=== PATIENT | male | born 1970 ===

== ENCOUNTER → 2021-03-16 10:05 | Outpatient (BNVA) | payer OTHER, SELFPAY | PROVIDERS: PCP Physician Assistant; Visit Provider Surgery | DX: R22.9 Localized swelling, mass and lump, unspecified (principal) | CPT/HCPCS: 99202 ==

== ENCOUNTER 2021-04-13 12:42 | Outpatient (REF) | payer OTHER, SELFPAY ==
[2021-04-13 12:49] VITALS: BP 112/77; PULSE 69; RESP 16; TEMP 36.4; O2SAT 97; BMI 29.2
--- NOTE | 2021-04-13 13:23 | P.OP_ITS ---
Operative Note Operative Note Date of Service: 04/13/21 Narrative: Preop diagnosis: Epidermal cyst, sternum Postop diagnosis: Epidermal inclusion cyst, sternum Procedure: Excision of epidermal inclusion cyst, sternum Surgeon: Anupam Almanza MD Screed Person: QUIQUE Erickson Student The patient is a 50-year-old male with note of a well-defined cystic mass on the sternum, about 2.5 cm in diameter. This was consistent with an epidermal inclusion cyst. He understood the technique of excision under local anesthesia. Was aware of the risks, benefits and alternatives He was brought to the minor procedure room and placed supine on the table. The area of the cyst was prepped and draped in the usual sterile fashion. I infiltrated the planned line of incision with lidocaine 1%. I made an incision on the skin using blade 15 and this was carried down with sharp dissection until I visualized a cyst capsule. I sharply dissected the cyst capsule off of the rest of subcutaneous layer circumferentially until I was able to deliver this cyst including its contents. This was sent as specimen. I irrigated the area of excision. I closed the incision with full-thickness nylon 3-0 interrupted sutures. Dressings were applied. The patient tolerated procedure well. There were no complications noted. Estimated blood loss was about 1 cc The patient was given discharge instructions and will be seen in the office for follow-up for removal of sutures.
[2021-04-13 13:25] VITALS: BP 112/73; PULSE 60; RESP 16; O2SAT 98
== END 2021-04-13 12:43 | disposition home or self-care (01) ==
LOC: HO.MS 12:42
PROVIDERS: Visit Provider Surgery
PROC: (CPT 11403; principal; 2021-04-13 13:00)
DX: L72.0 Epidermal cyst (principal)
CPT/HCPCS: 11403; 88304

== ENCOUNTER → 2021-04-24 11:39 | Outpatient (BNVA) | payer OTHER, SELFPAY | PROVIDERS: Visit Provider Surgery | DX: Z48.817 Encounter for surgical aftercare following surgery on the skin and subcutaneous tissue (principal); Z87.2 Personal history of diseases of the skin and subcutaneous tissue | CPT/HCPCS: 99212 ==

== ENCOUNTER 2021-06-12 10:52 | Outpatient (REF) | payer OTHER, SELFPAY ==
--- NOTE | ~2021-06-12 | XR_ITS ---
EXAMINATION: XR LUMBOSACRAL SPINE CLINICAL INFORMATION: Straining of muscle, fascia and tendon of lower back COMPARISON: None TECHNIQUE: Three views of the lumbosacral spine. FINDINGS: The vertebral bodies and posterior elements are normal. The disc spaces are preserved and the vertebral alignment is normal. Small multilevel endplate osteophytes. The sacroiliac joints are symmetric. The visualized sacrum is intact. Normal bowel gas pattern. The paraspinal soft tissues are normal. XR/XR lumbar spine 2-3V IMPRESSION: Mild degenerative changes.
== END 2021-06-12 10:53 | disposition home or self-care (01) ==
LOC: HO.XRAY 10:52
PROVIDERS: PCP Physician Assistant; Visit Provider Physician Assistant
DX: S39.012A Strain of muscle, fascia and tendon of lower back, initial encounter (principal); X58.XXXA Exposure to other specified factors, initial encounter; Y93.9 Activity, unspecified; Y92.9 Unspecified place or not applicable; Y99.9 Unspecified external cause status
CPT/HCPCS: 72100

== ENCOUNTER → 2021-09-18 09:09 | Outpatient (BNVA) | payer OTHER, SELFPAY | PROVIDERS: PCP Physician Assistant; Referring Provider Physician Assistant; Visit Provider Nurse Practitioner Family | DX: Z13.89 Encounter for screening for other disorder (principal) ==

== ENCOUNTER 2021-10-24 10:10 | Day surgery (SDC) | payer OTHER, SELFPAY ==
[2021-10-16 14:09] VITALS: BMI 29.9
--- NOTE | 2021-10-20 09:12 | HO.ANESPROP2 ---
Documented by User: Angie Caldwell NP 10/20/21 09:13 HPI - Anesthesia Eval Consult details Narrative: 50yo M for Colonoscopy Optimized per PCP [facility] Active Problems Active Problems: All Active Problems (Updated 10/17/21 @ 07:24 by Ijeoma Stephens RN) Lipoma (Acute) Annual physical exam (Acute) Afib (Acute) Screening for diabetes mellitus (DM) (Acute) Screening for hypercholesterolemia (Acute) Screening for hypothyroidism (Acute) Lumbar spine strain (Acute) Colon cancer screening (Acute) Subcutaneous mass (Acute) Arrhythmia (Acute) Past Medical History Medical History Arrhythmia History of cardioversion Sleep apnea Subcutaneous mass Family History Family History Father CVD (cardiovascular disease) Surgical History Surgical History Status post excision of lipoma Social History Social History Housing: House Alcohol intake: current Alcohol intake frequency: holidays/special occasions only Alcohol type: beer Patient Tobacco Use Status: Never used Tobacco e-Cigarette/Vaping Use: Never Used Second Hand Smoke Exposure: No Advance Directives: No Advance Directives Information Provided: Yes Advance Directives on File: No service: No Current occupational status: employed 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 [employer] Meds Allergies Allergy/AdvReac Type Severity Reaction Status Date / Time No Known Allergies Allergy Verified 09/18/21 09:25 Home Medications Medication Instructions Recorded Confirmed Last Taken Type aspirin 81 mg tablet,delayed 81 mg PO DAILY 01/03/21 06/12/21 Unknown History release (Adult Aspirin Regimen) metoprolol tartrate 100 mg tablet 100 mg PO BID 02/07/21 06/12/21 Unknown History Exam Exam Date and Time: October 20, [id number] Height,Weight and Vital Signs: Height 5 ft 7 in Weight 86.636 kg Assessment and Plan Assessment Anesthesia Assessment: Chart Reviewed Documented by User: Eryn Michelle MD 10/24/21 10:40 PMF Past Medical History Medical History Arrhythmia History of cardioversion Sleep apnea Subcutaneous mass Functional capacity: independent ambulation Family History Family History Father CVD (cardiovascular disease) Family history of problems with anesthesia: No Surgical History Surgical History Status post excision of lipoma History of Problems with Anesthesia: No Social History Social History Housing: House Alcohol intake: current Alcohol intake frequency: holidays/special occasions only Alcohol type: beer Patient Tobacco Use Status: Never used Tobacco e-Cigarette/Vaping Use: Never Used Second Hand Smoke Exposure: No Advance Directives: No Advance Directives Information Provided: Yes Advance Directives on File: No service: No Current occupational status: employed 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 Assessment and Plan Final Anesthetic Review Family History of Problems with Anesthesia: No History of Problems with Anesthesia: No ASA Class: III Final Preanesthetic Review: No Changes in Pt Med Stat, Meds/Allgs Chart Reviewed, Consent Obtained/Reviewed and Anes Risks/Benef Reviewed Patient Risk: Intermediate Procedure Risk: Low Anesthetic Plan Anesthetic Plan: MAC: Disposition: Standard PACU
--- NOTE | 2021-10-24 10:15 | MHC.SHP ---
Pre-Procedural Eval Section A Date of Service: 10/24/21 Section B Chief Complaint: screening Relevant Family History (Specify if Yes): No Relevant Social History: Other (specify) (THC use) Present Medications: see Short Stay Collaborative assessment Medical History: Significant History (Arrhythmia History of cardioversion Sleep apnea Subcutaneous mass) History of Previous Operations: Relevant previous surgery/procedure and date(s) (lipoma removal) Allergies: Allergies Allergy/AdvReac Type Severity Reaction Status Date / Time No Known Allergies Allergy Verified 09/18/21 09:25 Review of Systems Sugical H&P ROS: Negative: Constitution, Cardiovascular, Respiratory, Neurological, Psychiatric, Hem-Onc, Allergic/Immunologic, Gastrointestinal, Genitourinary, Musculoskeletal, Integumentary, Endocrine and Eyes/Ears/Nose/Throat Exam Surgical H&P Exam: Normal: HEENT, Normal: Heart, Normal: Lungs, Normal: Extremities, Normal: Abdomen, Normal: Skin and Normal: Neurological Plan Diagnosis/Plan: Unchanged I have reviewed the history and physical and performed a pertinent physical examination on my patient. No changes have occurred unless specified.
[2021-10-24 10:34] VITALS: BP 123/88; PULSE 71; RESP 16; TEMP 36.9; O2SAT 97
[2021-10-24] MEDS: Lactated Ringers 1,000 ML 100 ML IVCONT (10:43)
--- NOTE | 2021-10-24 11:11 | P.OP_ITS ---
Operative Note Operative Note Date of Service: 10/24/21 Narrative: Operative Information Procedure Description: Colonoscopy Indication: screening colonoscopy Anesthesia: MAC COLONOSCOPY Instrument: Olympus variable stiffness pediatric scope 190L Colonoscopy Monitoring: Vital signs and clinical assessment, continuous EKG monitoring, Pulse oximetry, Carbon Dioxide monitoring and blood pressure monitoring were done throughout the procedure. Colon withdrawal time was 10 minutes. Procedure: The patient was placed in the left lateral decubitis position and pre-procedure medications were administered. After a digital rectal examination of the ano-rectum, the video colonoscope was inserted into the rectum and advanced through the colon to the cecum/TI. The colonoscope was slowly withdrawn in a retrograde panoramic fashion and the colon mucosa was carefully examined including a retroflexed view of the rectum. Findings and interventions are described below. Procedure Difficulty: easy Findings: Terminal Ileum-normal Cecum:normal Ascending Colon: normal Transverse Colon -normal Descending Colon:normal Sigmoid Colon: normal Rectum: Retroflexion with small internal hemorrhoids, grade I Anorectum - normal Colon preparation: [place] Bowel Preparation Scale Right colon; 1-2 Transverse colon: 2 Left colon; 2 (0 = Unprepared colon segment with mucosa not seen due to solid stool that cannot be cleared. 1 = Portion of mucosa of the colon segment seen, but other areas of the colon segment not well seen due to staining, residual stool and/or opaque liquid. 2 = Minor amount of residual staining, small fragments of stool and/or opaque li quid, but mucosa of colon segment seen well. 3 = Entire mucosa of colon segment seen well with no residual staining, small fragments of stool or opaque liquid) Impression and Post Procedure Diagnosis: internal hemorrhoids Plan: High fiber diet leaflet Avoid straining at stool, epsom salts and sitz bath, anusol supps or cream Repeat Colonoscopy in 5 years due to right sided prep or earlier if clinically indicated Above findings were reviewed with the patient and relevant handouts were provided if indicated.
--- NOTE | 2021-10-24 11:11 | PM.OP ---
Brief Operative Note Date of Service: 10/24/21 Pre-op diagnosis: screening colonoscopy Post-op diagnosis: same Procedure: see op note Surgeon: Giullermina Maya MD Anesthesia: MAC Was an Surveyor Oil Well Directional used for this Procedure?: No Estimated blood loss (mL): 0 Condition: stable Disposition: PACU
[2021-10-24 11:52] VITALS: BP 91/51; PULSE 74; RESP 16; TEMP 36.8; O2SAT 94
--- NOTE | 2021-10-24 11:57 | HO.POSTANES ---
Post Anesthesia Evaluation Post Anesthesia Evaluation Vital Signs: Vital Signs Temp Pulse Resp BP Pulse Ox 10/24/21 11:52 98.2 F 74 16 91/51 L 94 10/24/21 10:34 98.5 F 71 16 123/88 97 Anesthesia: Monitored Mental Status: Awake Pain Control: Satisfactory Nausea/Vomiting: None Hydration: Adequate Anesthesia-Related Issues: No Anes. Related Issues
[2021-10-24 12:07] VITALS: BP 93/64; PULSE 77; RESP 16; O2SAT 95
[2021-10-24 12:21] VITALS: BP 114/80; PULSE 54; RESP 16; O2SAT 97
[2021-10-24 12:36] VITALS: BP 118/71; PULSE 64; RESP 16; TEMP 36.8; O2SAT 97
== END 2021-10-24 13:49 | disposition home or self-care (01) ==
PROVIDERS: PCP Physician Assistant; Visit Provider Internal Medicine Gastroenterology
PROC: 0DJD8ZZ Inspection of Lower Intestinal Tract, Via Natural or Artificial Opening Endoscopic (ICD-10-PCS; CPT 45378; principal; 2021-10-24 11:20)
DX: Z12.11 Encounter for screening for malignant neoplasm of colon (principal); K64.0 First degree hemorrhoids; I48.91 Unspecified atrial fibrillation; Z79.899 Other long term (current) drug therapy; Z79.82 Long term (current) use of aspirin; Z98.890 Other specified postprocedural states
CPT/HCPCS: 45378

== ENCOUNTER 2023-04-15 09:56 | Outpatient (AMB) | payer OTHER, SELFPAY ==
--- NOTE | 2023-04-15 10:13 | MHC.PC.OV ---
Vital Signs 04/15/23 10:15 Weight 228 lb BP 148/100 H Blood Pressure Location Lt brachial Position Sitting Respiration 17 Pulse 88 Pulse Source Pulse Oximeter Pulse Oximetry (%) 98 Oxygen Delivery Method Room Air Intake Visit Reasons: Lump on chest/ Stye right eye Intake Note: Pt is here for lipomatous lesion midsternum requesting removal and Stye on right eye. Pbx Wire Chief Required: No Accompanied by: Self / Same As Patient Allergies No Known Allergies Allergy (Verified 04/15/23 10:35) Medication List - Last Reconciled 04/15/23 by Nish Amaral PA-C aspirin (Adult Aspirin Regimen) 81 mg PO DAILY baclofen 10 mg PO BID 14 days ibuprofen 800 mg PO Q8H 10 days metoprolol tartrate 100 mg PO BID 90 days Tobacco use date assessed: 04/15/23 Dental Screening Dental Screen Date: 04/15/23 Did you have a dental visit in the last 12 months?: No Did you have a dental problem in the last 6 months where you did not have access to dental care?: No Was dental information given to patient?: Patient has dentist HPI Lump on chest/ Stye right eye HPI Details Patient is a 52-year-old male here today for problem visit. Patient has a past medical history significant for cardiac arrhythmia. Reports he has had a lump on his chest he would like removed. Of note he did have an epidermal inclusion cyst removed from his chest in [address] valera. He reports the mass has become more painful even to light touch. He would like to have surgical removal again. AFib: Continues with daily use of aspirin and metoprolol. He reports he for God to take his metoprolol over the last 2 days which is likely the reason his blood pressure is elevated. Needs refill on metoprolol. 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 1. Little interest or pleasure in doing things: not at all 2. Feeling down, depressed, or hopeless: not at all 3. Trouble falling or staying asleep, or sleeping too much: not at all 4. Feeling tired or having little energy: not at all 5. Poor appetite or overeating: not at all 6. Feeling bad about yourself - or that you are a failure or have let yourself or your family down: not at all 7. Trouble concentrating on things, such as reading the newspaper or watching television: not at all 8. Moving or speaking so slowly that other people could have noticed. Or the opposite - being so fidgety or restless that you have been moving around a lot more than usual: not at all 9. Thoughts that you would be better off or of hurting yourself in some way: not at all Total score: 0 Depression Screening Interpretation: Negative Depression Screening Done: Yes 76101 - PHQ-9 Billing: Yes Source: Developed by Drs. Sidney Yun, Aimee Lay, Scar Antonio and colleagues, with an educational gaudencio from [employer]. Thrive Questionnaire Date Thrive assessed: 04/15/23 I am a: Patient What is your living situation today?: I have a steady place to live Within the past 12 months, did the food you bought not last and you didn't have the money to get more?: Never true Within the past 12 months, did you worry whether your food would run out before you got money to buy more?: Never true Do you have trouble paying for medicines?: No Do you have trouble getting transportation to medical appointments?: No Do you have trouble paying your heating and electricity bill?: No Do you have trouble taking care of your child, family member or friend?: No Do you have trouble with day-to-day activities such as bathing, preparing meals, shopping, managing finances, etc.?: No Are you currently unemployed and looking for a job?: No Are you interested in more education?: No Please select the resources that you would like help with: None Currently or been in a relationship where the following occur: no concerns reported AUDIT C Alcohol Use Questionnaire (AUDIT-C) 1. How often do you have a drink containing alcohol?: 2-4 times a month 2. How many drinks containing alcohol do you have on a typical day when you are drinking?: 3 or 4 3. How often do you have six or more drinks on one occasion?: Less than monthly Total Score: 4 LU-7 AMB Questionnaire LU-7 Date LU - 7 assessed: 04/15/23 Feeling nervous, anxious, or on edge: 0 = Not at all Not being able to stop or control worryin = Not at all Worrying too much about different things: 0 = Not at all Trouble relaxin = Not at all Being so restless that it is hard to sit still: 0 = Not at all Becoming easily annoyed or irritable: 0 = Not at all Feeling afraid as if something awful might happen: 0 = Not at all Total LU-7 score (0-4 normal; 5-9 mild; 10-14 moderate; 15-21 severe): 0 Source: Developed by Drs. Sidney Yun, Aimee Lay, Scar Antonio and colleagues, with an educational gaudencio from [employer]. LU-7 Assessment Billing LU-7 Assessment Tool: LU-7 Assessment 20135 Review of Systems Const Denies headache(s) Eyes Denies loss of vision ENT Denies vertigo, Denies dizziness, Denies headache(s) and Denies sore throat Card Denies chest pain, Denies leg edema and Denies lightheadedness Resp Denies cough, Denies hemoptysis and Denies wheezing GI Denies abdominal pain, Denies melena, Denies constipation, Denies diarrhea and Denies vomiting Denies dysuria, Denies urinary frequency and Denies urinary urgency Musc Denies arthralgias, Denies joint swelling, Denies numbness and Denies tingling Neuro Denies Abnormal speech present, Denies behavioral changes, Denies vertigo, Denies dizziness, Denies headache(s), Denies loss of vision, Denies memory loss, Denies numbness and Denies tingling Psych Denies anxiety, Denies behavioral changes, Denies depression, Denies memory loss and Denies panic attacks Bhavin/Lymph Denies easy bleeding and Denies easy bruising Aller/Immun Denies wheezing Physical exam (Primary Care) Vital Signs: Last Vital Signs Pulse 88 04/15/23 10:15 Resp 17 04/15/23 10:15 BP 148/100 H 04/15/23 10:15 Pulse Ox 98 04/15/23 10:15 Oxygen Delivery Method Room Air 04/15/23 10:15 Tobacco/Smoking Status: Tobacco use Status Tobacco use date assessed 04/15/23 04/15/23 10:23 Patient Tobacco Use Status Never used Tobacco 04/15/23 10:22 e-Cigarette/Vaping Use Never Used 04/15/23 10:22 PHQ-9: PHQ-9 Score PHQ-9: Total score 0 04/15/23 10:29 Depression Screening Interpretation: Negative Thrive Assessment: Date of Thrive Assessment Date Thrive assessed 04/15/23 04/15/23 10:23 Currently or been in a relationship where the following occur: no concerns reported Const General: healthy appearing, no acute distress, alert and awake Nutritional Appearance: well nourished Orientation/consciousness: oriented to person, oriented to place and oriented to time HENMT Ears: TM's normal bilaterally General nose exam: Normal nasal mucous membranes and turbinates present Eyes Conjunctivae: conjunctivae normal Sclerae: sclerae normal Pupils: Equal, round and reactive pupils present Neck Neck: Yes no lymphadenopathy and Yes no JVD Thyroid: Thyroid normal Carotids: no bruits Chest Chest/axillae images: 1. LARGE ERYTHEMATOUS SUBCUTANEOUS MASS. Resp Effort & Inspection: normal respiratory effort and not tachypneic Auscultation: no crackles, no rales, no rhonchi and no wheezes Cardio Rate: regular rate Rhythm: regular rhythm Heart sounds: no murmurs and normal S1 and S2 GI Palpation (GI): Soft to palpation, nontender, no hepatomegaly and no splenomegaly Auscultation: normal bowel sounds Skin General skin exam: no rashes or lesions noted and dry skin Neuro General: oriented to person, oriented to place and oriented to time Cranial nerves: Yes Equal, round and reactive pupils present Speech: No Abnormal speech present Gait exam (Neuro): Normal gait present Motor exam (neuro): no tremor noted Extrem Right upper extremity: full ROM Left upper extremity: full ROM Right lower extremity: full ROM; no edema Left lower extremity: full ROM; no edema Psych Mental Status: mental status grossly normal Speech and movement: Normal speech and movement present Affect: normal affect Attitude: cooperative Thought process: Normal thought process present Assessment and Plan Assessment & Plan (1) Subcutaneous cyst: Code(s): L72.9 - Follicular cyst of the skin and subcutaneous tissue, unspecified Plan: Has a large recurrent subcutaneous inclusion cyst noted over his chest. Has had surgically removed in 2020. Has recurred and in a lot of pain. Will supply patient with antibiotics and pain medication. Will refer back to general surgeon for surgical will. Orders: Orders Comprehensive Mio. Panel Fast Today I48.91 - Unspecified atrial fibrillation Complete Blood Count no Diff Today I48.91 - Unspecified atrial fibrillation Prostate Specific Antigen Scr Today I48.91 - Unspecified atrial fibrillation, Z12.5 - Encounter for screening for malignant neoplasm of prostate Referrals General Surgery Referral L72.9 - Follicular cyst of the skin and subcutaneous tissue, unspecified Medications: New amoxicillin-pot clavulanate 875-125 mg 1 tab PO BID 10 days 20 tabs 0RF L72.9 - Follicular cyst of the skin and subcutaneous tissue, unspecified acetaminophen-codeine 300-30 mg 1 tab PO BEDTIME 5 days 5 tabs 0RF pain L72.9 - Follicular cyst of the skin and subcutaneous tissue, unspecified Refilled metoprolol tartrate 100 mg PO BID 90 days 180 tabs 1RF I49.9 - Cardiac arrhythmia, unspecified Coding Level of Care Code Est Pt Level 4 (10281) Diagnoses Subcutaneous cyst L72.9 Additional Codes LU-7 Assessment Billing - LU-7 Assessment Tool: LU-7 Assessment 28685 ([id number])
[2023-04-15 10:15] VITALS: BP 148/100; PULSE 88; RESP 17; O2SAT 98
== END 2023-04-15 10:58 | disposition home or self-care (01) ==
PROVIDERS: PCP Physician Assistant; Visit Provider Physician Assistant
DX: L72.9 Follicular cyst of the skin and subcutaneous tissue, unspecified (principal); Z82.49 Family history of ischemic heart disease and other diseases of the circulatory system
CPT/HCPCS: 99214

== ENCOUNTER 2023-04-18 08:33 | Outpatient (AMB) | payer OTHER, SELFPAY ==
--- NOTE | 2023-04-18 08:34 | A.OFFVIS_ITS ---
Intake Vital Signs 04/18/23 08:42 Weight 227 lb Intake Visit Reasons: large subcutaneous cyst chest Intake Note: This patient presents for an assessment for large subcutaneous cyst on the chest. Patient c/o; reports cyst popped, reports was very painful, reports draining when popped, reports was not able to sleep x3 days because of pain and discomfort. Cylinder Inspector And Tester Required: No Accompanied by: Self / Same As Patient Allergies No Known Allergies Allergy (Verified 04/18/23 08:42) Medication List - Last Reconciled 04/18/23 by Anupam Almanza MD acetaminophen-codeine 300-30 mg 1 tab PO BEDTIME 5 days amoxicillin-pot clavulanate 875-125 mg 1 tab PO BID 10 days aspirin (Adult Aspirin Regimen) 81 mg PO DAILY baclofen 10 mg PO BID 14 days hydroxyzine HCl 50 mg PO TID ibuprofen 800 mg PO Q8H 10 days metoprolol tartrate 100 mg PO BID 90 days mirtazapine 30 mg PO BEDTIME olanzapine 10 mg PO BEDTIME HPI large subcutaneous cyst chest HPI Details He is here for another cyst on his chest wall. He had noticed about 10 days ago. He says that this then drained spontaneously 2 days ago. He had and tenderness last week but this has improved significantly. He has had similar cysts on the area excised 2 years ago. He otherwise denies significant complaints. [facility] Medical History (Updated 04/18/23 @ 08:50 by Anupam Almanza MD) Ruptured epidermal cyst History of cardioversion Sleep apnea Subcutaneous mass Arrhythmia Surgical History Status post excision of lipoma Family History Father CVD (cardiovascular disease) Social History Housing: House Alcohol intake: current Alcohol intake frequency: holidays/special occasions only Alcohol type: beer Patient Tobacco Use Status: Never used Tobacco e-Cigarette/Vaping Use: Never Used Second Hand Smoke Exposure: No Substance Use Type: Marijuana service: No Current occupational status: employed Current occupation: [employer] WORK[employer] Cognitive needs: No Hearing needs: No Vision needs: No Review of Systems Const Denies chills and Denies fever(s) Card Denies chest pain, Denies dyspnea and Denies dyspnea on exertion Resp Denies cough, Denies dyspnea and Denies dyspnea on exertion GI Denies hematochezia and Denies change in bowel habits Denies hematuria and Denies difficulty urinating Musc Denies back pain and Denies limited range of motion Neuro Denies focal weakness and Denies convulsions Psych Denies depression and Denies mood swings Physical Exam Const General: comfortable and no acute distress Orientation/consciousness: patient oriented x3 Neck Neck: Yes no lymphadenopathy Chest Other: On the sternal area is note of an induration, about 2.5 cm, with an open area and spontaneous drainage. There is no residual fluctuance Resp Auscultation: clear to auscultation bilaterally Cardio Rhythm: regular rhythm GI Palpation (GI): Soft to palpation, nontender and no guarding Neuro General: patient oriented x3 Assessment & Plan Assessment & Plan (1) Ruptured epidermal cyst: Code(s): L72.0 - Epidermal cyst Plan: It appears that he has a ruptured epidermal cyst on the sternal area. Explained to him that it may be best to proceed with excision to prevent recurrence persistent inflammation. I explained the technique of excision under local anesthesia. I reviewed the risks including but not limited to bleeding and infections and poor healing, as well as the benefits and alternatives. He understands and wants to proceed. This will be done here in the office on his next visit. Coding Level of Care Code Est Pt Level 3 (03150) Diagnoses Ruptured epidermal cyst L72.0
== END 2023-04-18 08:51 | disposition home or self-care (01) ==
PROVIDERS: PCP Physician Assistant; Visit Provider Surgery
DX: L72.0 Epidermal cyst (principal)
CPT/HCPCS: 99213

== ENCOUNTER → 2023-04-18 08:33 | Outpatient (BNVA) | payer OTHER, SELFPAY | PROVIDERS: PCP Physician Assistant; Visit Provider Surgery | DX: L72.0 Epidermal cyst (principal) | CPT/HCPCS: 99212 ==

== ENCOUNTER 2023-04-25 10:58 | Outpatient (REF) | payer OTHER, SELFPAY | END 2023-04-25 10:59 | disposition home or self-care (01) | LOC: HO.LNP 10:58 | PROVIDERS: PCP Physician Assistant; Visit Provider Surgery | DX: L72.0 Epidermal cyst (principal) | CPT/HCPCS: 11403; 88304 ==

== ENCOUNTER 2023-04-25 10:58 | Outpatient (AMB) | payer OTHER, SELFPAY ==
--- NOTE | 2023-04-25 11:10 | A.OFFVIS_ITS ---
Intake Vital Signs 04/25/23 11:16 BP 132/70 Blood Pressure Location Lt brachial Position Sitting Intake Visit Reasons: Excision of cyst from the chest wall Intake Note: This patient presents for in-office procedure for excision of cyst on the chest wall. 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 [facility] Medical History (Updated 04/18/23 @ 08:50 by Anupam Almanza MD) Ruptured epidermal cyst History of cardioversion Sleep apnea Subcutaneous mass Arrhythmia Surgical History Status post excision of lipoma Family History Father CVD (cardiovascular disease) Social History Housing: House Alcohol intake: current Alcohol intake frequency: holidays/special occasions only Alcohol type: beer Patient Tobacco Use Status: Never used Tobacco e-Cigarette/Vaping Use: Never Used Second Hand Smoke Exposure: No Substance Use Type: Marijuana service: No Current occupational status: employed 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 The area of the this was prepped and draped. Lidocaine 1% was used for local anesthesia. I made an elliptical incision on the skin surrounding this induration using blade 15. This was carried down sharply through the full-thickness of the skin subcutaneous fat and the entire indurated area was excise. The excised area was about 2.5 cm in diameter. This was sent as specimen. Hemostasis was confirmed. I then closed the incision with full- thickness nylon 3-0 interrupted sutures. Dressings were applied. The procedure was completed. He tolerated procedure well. There were no immediate complications. There was minimal blood loss. He was given wound care instructions. He will be seen in the office for follow-up. [id number]/arms/legs 2.1-3cm Procedure code (CPT) selection complete Assessment & Plan Assessment & Plan (1) Ruptured epidermal cyst: Code(s): L72.0 - Epidermal cyst Plan: Excision was done under local anesthesia. He was given wound care instructions and will be seen for postop visit. Coding Level of Care Code Procedure Only Diagnoses Ruptured epidermal cyst L72.0 CPT Codes Trunk/Arms/Legs - CPT: 04287-qhdst/arms/legs 2.1-3cm ([id number])
[2023-04-25 11:16] VITALS: BP 132/70
== END 2023-04-25 11:32 | disposition home or self-care (01) ==
PROVIDERS: PCP Physician Assistant; Visit Provider Surgery
DX: L72.0 Epidermal cyst (principal)
CPT/HCPCS: 11403

== ENCOUNTER 2023-05-10 11:30 | Outpatient (AMB) | payer OTHER, SELFPAY ==
--- NOTE | 2023-05-10 13:09 | AM.OFFWIN_ITS ---
Intake Vital Signs 3 05/10/23 13:17 Weight 233 lb BP 142/80 H Blood Pressure Location Lt brachial Position Sitting Pulse 82 Pulse Source Pulse Oximeter Temp 97.8 F Temp Source Temporal Artery Scan Pulse Oximetry (%) 98 Intake Visit Reasons: EST/right eye sty X3 weeks Intake Note: pt is here for c/o right eye sty 3x weeks Patient Tobacco Use Status: Never used Tobacco Allergies No Known Allergies Allergy (Verified 05/10/23 13:09) Medication List - Last Reconciled 05/10/23 by Elieser Davalos MD acetaminophen-codeine 300-30 mg 1 tab PO BEDTIME 5 days aspirin (Adult Aspirin Regimen) 81 mg PO DAILY erythromycin 1 appl ophthalmic-Right DAILY 15 days hydroxyzine HCl 50 mg PO TID ibuprofen 800 mg PO Q8H 10 days metoprolol tartrate 100 mg PO BID 90 days mirtazapine 30 mg PO BEDTIME olanzapine 10 mg PO BEDTIME Do you need a note to return to daycare/school/sports/work: Yes HPI EST/right eye sty X3 weeks 2 HPI0 Details Patient is a 52-year-old gentleman came in today for re-evaluation of stye right upper eyelid Patient was seen few days ago and was given erythromycin ointment It has not resolved the problem Stye has gotten bigger On examination it is non inflammatory there is no pain with palpation but he has a large stye right upper eyelid There is no conjunctival injection or discharge. I am changing the eye medication to Polytrim eyedrops Patient will need to see ophthalmology for further evaluation. Meanwhile patient was also instructed to use warm compresses and discharge gently PFSH Medical History Ruptured epidermal cyst History of cardioversion Sleep apnea Subcutaneous mass Arrhythmia Surgical History History of excision of epidermal inclusion cyst (~04/25/23) Status post excision of lipoma Family History Father CVD (cardiovascular disease) Social History Housing: House Alcohol intake: current Alcohol intake frequency: holidays/special occasions only Alcohol type: beer Patient Tobacco Use Status: Never used Tobacco e-Cigarette/Vaping Use: Never Used Second Hand Smoke Exposure: No Substance Use Type: Marijuana service: No Current occupational status: employed 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 Large stye, no pain with palpation, conjunctiva not injected, no discharge in the eyes, no blurring of vision, no photophobia Resp Effort & Inspection: normal respiratory effort and able to speak in complete sentences Auscultation: clear to auscultation bilaterally Neuro General: patient oriented x3 Psych Mental Status: mental status grossly normal Assessment & Plan Assessment & Plan (1) Hordeolum of right eye: Code(s): H00.013 - Hordeolum externum right eye, unspecified eyelid Qualifiers: Hordeolum type: externum Eyelid: upper Qualified Code(s): H00.011 - Hordeolum externum right upper eyelid Plan Patient is a 52-year-old gentleman came in today for re-evaluation of stye right upper eyelid Patient was seen few days ago and was given erythromycin ointment It has not resolved the problem Stye has gotten bigger On examination it is non inflammatory there is no pain with palpation but he has a large stye right upper eyelid There is no conjunctival injection or discharge. I am changing the eye medication to Polytrim eyedrops Patient will need to see ophthalmology for further evaluation. Meanwhile patient was also instructed to use warm compresses and discharge gently Orders: Referrals 2 Ophthalmology Referral H00.013 - Hordeolum externum right eye, unspecified eyelid Medications: New 2 polymyxin B sulf-trimethoprim 10,000 unit- 1 mg/mL (Polytrim) while awake; do not exceed 6 doses in 24 hours 1 drp ophthalmic (eye) QID 10 mL 0RF 5 days Discontinued 2 erythromycin Discontinued Reason: Patient Completed Course 1 appl ophthalmic-Right DAILY 3.5 grams 0RF 15 days H00.013 - Hordeolum externum right eye, unspecified eyelid Coding Level of Care Code Est Pt Level 3 (55394) Diagnoses Hordeolum externum of right upper eyelid H00.011 Hordeolum type: externum Eyelid: upper
[2023-05-10 13:17] VITALS: BP 142/80; PULSE 82; TEMP 36.6; O2SAT 98
== END 2023-05-10 13:34 | disposition home or self-care (01) ==
PROVIDERS: PCP Physician Assistant; Visit Provider Internal Medicine
DX: H00.011 Hordeolum externum right upper eyelid (principal)
CPT/HCPCS: 99213

== ENCOUNTER → 2024-05-07 07:00 | Outpatient (BNV) | payer OTHER, SELFPAY | PROVIDERS: Admitting Provider Hospitalist; Emergency Provider Emergency Medicine Emergency Medical Services; PCP Physician Assistant; Visit Provider Internal Medicine | DX: I36.1 Nonrheumatic tricuspid (valve) insufficiency (principal); I48.91 Unspecified atrial fibrillation | CPT/HCPCS: 93010; 93306 ==

== ENCOUNTER 2024-05-07 08:18 | Outpatient (AMB) | payer OTHER, SELFPAY ==
--- NOTE | 2024-05-07 08:32 | MHC.PC.OV ---
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 Accompanied by: Self / Same As Patient Allergies No Known Allergies Allergy (Verified 05/07/24 09:28) Medication List - Last Reconciled 05/07/24 by Nish Amaral PA-C aspirin (Adult Aspirin Regimen) 81 mg PO DAILY hydroxyzine HCl 50 mg PO TID ibuprofen 800 mg PO Q8H 10 days metoprolol tartrate 100 mg PO BID 90 days mirtazapine 30 mg PO BEDTIME olanzapine 10 mg PO BEDTIME Tobacco use date assessed: 05/07/24 Dental Screening Dental Screen Date: 05/07/24 Did you have a dental visit in the last 12 months?: Yes Did you have a dental problem in the last 6 months where you did not have access to dental care?: No Was dental information given to patient?: Patient has dentist HPI AnnualPE HPI Details Patient is a 53-year-old male here today for routine annual physical. Patient has a past medical history significant for cardiac arrhythmia. Concerns--> Rasheed reports he has been feeling somewhat dizzy when he stands up or he bends down to tie his shoes. He does report having some palpitations as of late. Today in office heart rate irregular in seems fast. EKG showing AFib with rapid mean ventricular rate at a rate of 160. Patient will be seen at the ER for evaluation AFib: Continues with daily use of aspirin and metoprolol. Needs refill on metoprolol. Vaccines: Needs Tdap though is declining today will consider later. Colorectal cancer screening: done in 2021- repeat 5 years [facility] Medical History Ruptured epidermal cyst History of cardioversion Sleep apnea Subcutaneous mass Arrhythmia Surgical History History of excision of epidermal inclusion cyst (~04/25/23) Status post excision of lipoma Family History Father CVD (cardiovascular disease) Mother Multiple sclerosis Social History Housing: House Alcohol intake: current Alcohol intake frequency: holidays/special occasions only Alcohol type: beer Patient Tobacco Use Status: Never used Tobacco Smoked in Last 30 Days: No e-Cigarette/Vaping Use: Never Used Second Hand Smoke Exposure: No Use of substances other than those prescribed or required for medical reasons: Yes Substance Use Type: Marijuana Substance Use Frequency: Occasionally Advance Directives: No Advance Directives Information Provided: Yes Do you have a plan to hurt others: No Plan Nutrition Risks: No Nutritional Risk service: No Current occupational status: employed 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 1. Little interest or pleasure in doing things: not at all 2. Feeling down, depressed, or hopeless: not at all 3. Trouble falling or staying asleep, or sleeping too much: not at all 4. Feeling tired or having little energy: not at all 5. Poor appetite or overeating: not at all 6. Feeling bad about yourself - or that you are a failure or have let yourself or your family down: not at all 7. Trouble concentrating on things, such as reading the newspaper or watching television: not at all 8. Moving or speaking so slowly that other people could have noticed. Or the opposite - being so fidgety or restless that you have been moving around a lot more than usual: not at all 9. Thoughts that you would be better off or of hurting yourself in some way: not at all Total score: 0 Source: Developed by Drs. Sidney Yun, Aimee Lay, Scar Antonio and colleagues, with an educational gaudencio from [employer]. Thrive Questionnaire Date Thrive assessed: 05/07/24 I am a: Patient What is your living situation today?: I have a steady place to live Within the past 12 months, did the food you bought not last and you didn't have the money to get more?: Never true Within the past 12 months, did you worry whether your food would run out before you got money to buy more?: Never true Do you have trouble paying for medicines?: No Do you have trouble getting transportation to medical appointments?: No Do you have trouble paying your heating and electricity bill?: No Do you have trouble taking care of your child, family member or friend?: No Do you have trouble with day-to-day activities such as bathing, preparing meals, shopping, managing finances, etc.?: No Are you currently unemployed and looking for a job?: No Are you interested in more education?: No Please select the resources that you would like help with: None Currently or been in a relationship where the following occur: No concerns reported THRIVE Score: 0 AUDIT C Alcohol Use Questionnaire (AUDIT-C) 1. How often do you have a drink containing alcohol?: Monthly or less 2. How many drinks containing alcohol do you have on a typical day when you are drinking?: 1 or 2 3. How often do you have six or more drinks on one occasion?: Never Total Score: 1 LU-7 AMB Questionnaire LU-7 Date LU - 7 assessed: 05/07/24 Feeling nervous, anxious, or on edge: 0 = Not at all Not being able to stop or control worryin = Not at all Worrying too much about different things: 0 = Not at all Trouble relaxin = Not at all Being so restless that it is hard to sit still: 0 = Not at all Becoming easily annoyed or irritable: 0 = Not at all Feeling afraid as if something awful might happen: 0 = Not at all Total LU-7 score (0-4 normal; 5-9 mild; 10-14 moderate; 15-21 severe): 0 Source: Developed by Drs. Sidney Yun, Aimee Lay, Scar Antonio and colleagues, with an educational gaudencio from [employer]. Review of Systems Const Denies body aches, Denies chills, Denies excessive sweating, Denies fatigue, Denies fever(s) and Denies headache(s) Eyes Denies blurry vision ENT Denies dysphagia, Denies vertigo, Denies dizziness, Denies headache(s), Denies hearing loss and Denies tinnitus Card Denies chest pain, Denies chest pain with activity, Denies syncope, Denies irregular heart rhythm and Denies dyspnea Resp Denies chest congestion, Denies cough, Denies hemoptysis, Denies dyspnea and Denies wheezing GI Denies abdominal pain, Denies melena, Denies hematochezia, Denies coffee ground emesis, Denies dysphagia, Denies diarrhea, Denies nausea and Denies vomiting Denies difficulty urinating, Denies dysuria, Denies urinary frequency, Denies urinary hesitancy and Denies urinary urgency Musc Denies arthralgias, Denies limited range of motion, Denies muscle cramps and Denies muscle weakness Skin/Breast Denies rash and Denies skin ulcer Neuro Denies Abnormal speech present, Denies confusion, Denies vertigo, Denies dizziness, Denies syncope, Denies headache(s), Denies memory loss and Denies seizure-like activity Psych Denies anxiety, Denies confusion, Denies depression, Denies memory loss, Denies panic attacks and Denies paranoia Endo Denies excessive sweating, Denies fatigue, Denies flushing, Denies polydipsia and Denies polyuria Aller/Immun Denies wheezing Physical exam (Primary Care) Vital Signs: Last Vital Signs BP 136/80 05/07/24 08:35 BMI result Body Mass Index 35.0 Tobacco/Smoking Status: Tobacco use Status Tobacco use date assessed 05/07/24 05/07/24 08:39 Patient Tobacco Use Status Never used Tobacco 05/07/24 08:45 e-Cigarette/Vaping Use Never Used 05/07/24 08:45 PHQ-9: PHQ-9 Score PHQ-9: Total score 0 05/07/24 08:42 Thrive Assessment: Date of Thrive Assessment Date Thrive assessed 05/07/24 05/07/24 08:34 Currently or been in a relationship where the following occur: No concerns reported Const General: cooperative, comfortable, no acute distress, alert and awake; No confusion Orientation/consciousness: oriented to person, oriented to place, patient oriented x3 and No confusion HENMT Head: Yes normocephalic Ears: external ears normal and TM's normal bilaterally Face and sinus: No sinus tenderness Mouth: Normal oral and palatal mucosa present and tongue normal Teeth and gingiva: dentition normal and gingiva normal Throat: Yes posterior oropharynx normal, Yes tonsils normal and Yes uvula midline Eyes Conjunctivae: conjunctivae normal Sclerae: sclerae normal Pupils: Equal, round and reactive pupils present EOM: EOMs intact bilaterally Direct Ophthalmoscopy: No no photophobia Neck Neck: Yes no lymphadenopathy, No tender and Yes no JVD Thyroid: Thyroid normal Carotids: no bruits Chest Chest palpation & inspection: no tenderness Resp Effort & Inspection: normal respiratory effort, no audible wheezes, not labored and no stridor Auscultation: no crackles, no rales, no rhonchi and no wheezes Cardio Jugular venous distension: no JVD Rate: abnormal rate, not bradycardic and tachycardic Rhythm: abnormal rhythm and abnormal rhythm Bruits: no carotid bruits Peripheral pulses: Peripheral pulses 2+ throughout GI Inspection: Yes normal to inspection, No abdominal wall ecchymosis and No visible herniation Palpation (GI): Soft to palpation, nontender, no guarding, not rigid and No hepatosplenomegaly present Auscultation: normoactive bowel sounds General: Yes no CVA tenderness Back/Spine/Pelvis Back: no CVA tenderness and No back tenderness Cervical Spine: cervical ROM normal Thoracic/Lumbar Spine: thoracic and lumbar spine normal to inspection, straight leg raise negative bilaterally, No thoraco-lumbar ROM limited and No lumbar spinal tenderness Skin Lesions: no lesions Rashes: no rashes Wounds: no wounds Neuro General: oriented to person, oriented to place, patient oriented x3, CN's II-XI intact bilaterally and No confusion Cranial nerves: Yes Equal, round and reactive pupils present and Yes Normal accommodation reflex present Cognition (Neuro): normal cognition Speech: No Abnormal speech present Gait exam (Neuro): Normal gait present Motor exam (neuro): 5/5 motor strength present throughout Extrem Right upper extremity: full ROM; no cyanosis Left upper extremity: full ROM; no cyanosis Right lower extremity: no edema Left lower extremity: no edema Psych Appearance: grossly normal Mental Status: mental status grossly normal Affect: normal affect Attitude: cooperative Thought process: Normal thought process present Office Procedures Flu Questionnaire Does the patient have a severe egg allergy?: No Immunizations Fluarix Triv [id number] (PF) 45 mcg (15 mcg x 3)/0.5 mL IM syringe Performing Provider: Nish Amaral PA-C Performing Location: [facility] [place] [facility] Documented (not given) by: SANTO Brunner on 05/07/24 08:41 Reason Not Given: Patient Refused Coding Level of Care Code Est Pt Prev Care 40-64y(34210) Diagnoses Annual physical exam Z00.00 Atrial fibrillation, unspecified type I48.91 Atrial fibrillation type: unspecified Screening for diabetes mellitus (DM) Z13.1 Colon cancer screening Z12.11 Assessment & Plan Assessment & Plan (1) Annual physical exam: Code(s): Z00.00 - Encounter for general adult medical examination without abnormal findings Category: Medical Plan: As per HPI (2) Afib: Code(s): I48.91 - Unspecified atrial fibrillation Category: Medical Qualifiers: Atrial fibrillation type: unspecified Qualified Code(s): I48.91 - Unspecified atrial fibrillation Plan: NOTED RAPID AFIB TODAY IN OFFICE EKG SHOWING BPM AT 162. WILL BE EVALUATED AT THE ER. (3) Screening for diabetes mellitus (DM): Code(s): Z13.1 - Encounter for screening for diabetes mellitus Category: Medical Plan: As per HPI (4) Colon cancer screening: Code(s): Z12.11 - Encounter for screening for malignant neoplasm of colon Category: Medical Plan: Up-to-date with colonoscopy done in 2021. Needed repeat in 5 years. Orders: Orders Comprehensive Romayor. Panel Fast Today Z13.1 - Encounter for screening for diabetes mellitus Complete Blood Count no Diff Today I48.91 - Unspecified atrial fibrillation Prostate Specific Antigen Scr Today Z12.5 - Encounter for screening for malignant neoplasm of prostate, Z13.1 - Encounter for screening for diabetes mellitus Influenza [id number] Immunization Today Z23 - Encounter for immunization
[2024-05-07 08:35] VITALS: BP 136/80; BMI 35.0
== END 2024-05-07 09:08 | disposition home or self-care (01) ==
LOC: HO.HMCH 08:19
PROVIDERS: PCP Physician Assistant; Visit Provider Physician Assistant
DX: Z00.00 Encounter for general adult medical examination without abnormal findings (principal); I48.91 Unspecified atrial fibrillation; Z13.1 Encounter for screening for diabetes mellitus; Z12.11 Encounter for screening for malignant neoplasm of colon; Z23 Encounter for immunization

== ENCOUNTER → 2024-05-07 08:18 | Outpatient (BNVA) | payer OTHER, SELFPAY | PROVIDERS: PCP Physician Assistant; Visit Provider Physician Assistant | DX: Z00.01 Encounter for general adult medical examination with abnormal findings (principal); I48.91 Unspecified atrial fibrillation | CPT/HCPCS: 90471; 96127; 99396 ==

== ENCOUNTER 2024-05-07 09:20 | Inpatient (IN) | payer OTHER, SELFPAY ==
[2024-05-07] VITALS (18 sets, daily range): BP systolic 101–129; BP diastolic 73–95; PULSE 81–162; RESP 12–21; TEMP 36.7; O2SAT 95–99; BMI 35.7
--- NOTE | 2024-05-07 | ECG_ITS ---
Test Reason : RAPID AFIB Blood Pressure : / mmHG Vent. Rate : 142 BPM Atrial Rate : 000 BPM P-R Int : 000 ms QRS Dur : 090 ms QT Int : 332 ms P-R-T Axes : 000 -33 026 degrees QTc Int : 510 ms Atrial fibrillation with rapid ventricular response Left axis deviation Abnormal ECG No previous ECGs available Referred By: Generic ED Physician Electronically Signed By:ESME ZUNIGA
--- NOTE | 2024-05-07 07:00 | CA_ITS ---
Transthoracic Echocardiogram Patient (Last, First, Middle): Rasheed Edward, Gender: Male Date of : 1970 Age: 53 Procedure Date: 05/07/2024 Procedure Type: Transthoracic Echocardiogram Location: ER Height: 170.18 cm Weight: 103.42 kg BSA: 2.14 m2 Heart Rate: bpm BP: 125 / 94 mmHg Nurse Gynecology: AIMEE Referring MD: Melvin Lopez DO Symptoms: Afib w/RVR Study Quality: Fair ECG Rhythm: Atrial Fibrillation Conclusions: - The left ventricular systolic function is mildly decreased. The visually estimated ejection fraction is between 45-50%. - No obvious valvular pathology seen on this study. Findings Left Ventricle Normal left ventricular cavity size. There is mildly increased left ventricular wall thickness. The left ventricular systolic function is mildly decreased. The visually estimated ejection fraction is between 45-50%. Diastolic function is indeterminate on the basis of available data. Right Ventricle Normal right ventricular cavity size. There is mildly decreased right ventricular systolic function. Atria Both atria are normal in size. Aortic Valve There is a normal trileaflet aortic valve. There is no aortic valve stenosis. There is no aortic valve regurgitation. Mitral Valve The mitral valve appears normal. There is trace mitral valve regurgitation. There is no mitral valve stenosis. Pulmonic Valve The pulmonic valve is likely normal. Tricuspid Valve There is mild tricuspid valve regurgitation. There is no evidence of pulmonary hypertension. Great Vessels The asc aorta is normal in size. Venous The inferior vena cava is mildly dilated and collapses greater than 50% with inspiration. Pericardium/Pleural There is no evidence of pericardial effusion. Prior Study Comparison No prior study available for comparison. Recommendations, Care & Conclusions No obvious valvular pathology seen on this study. Measurements 2D Linear Measurements IVSd: 1.22 0.6-0.9/0.6-1.0 cm LVIDd: 4.70 3.9-5.3/4.2-5.9 cm LVIDd Index: 2.20 2.4-3.2/2.2-3.1 cm/m2 LVIDs: 3.52 2.0-3.6 cm LVPWd: 1.21 0.7-1.1 cm LA Diam: 3.90 2.7-3.8/3.0-4.0 cm LAIDs Index: 1.82 1.5-2.3 cm/m2 LV Mass: 268.99 67-162/88-224 g LV Mass Index: 125.70 43-95/49-115 g/m2 LVOT Diam: 2.20 3.0+(-)1.3 cm 2D Systolic Function EF 4C: 56.30 >55% EF 2C: 54.70 >55% EF BiP: 53.70 >55% Mitral Valve MV Pk E: 0.95 MV Decel Time: 143.00 E'Lateral: 8.09 E'Medial: 6.92 E/E' Med: 13.80 E/E' Lat: 11.80 PHT: 42.00 MVA PHT: 5.24 Decel Edgar: 6.64 Aortic Valve AoV Pk Ethan: 0.89 AoV Mn Ethan: 0.67 AoV VTI: 0.19 AoV Pk Grad: 3.00 Aov Mn Grad: 2.00 FRANKY Cont.VTI: 2.05 LVOT LVOT Pk Ethan: 0.53 LVOT Mn Ethan: 0.38 LVOT VTI: 0.10 LVOT Pk Grad: 1.00 LVOT Mn Grad: 1.00 LVOT Diam: 2.20 LVOT Area: 3.80 Diastolic Function MV Pk E: 0.95 E'Medial: 6.92 E/E' Med: 13.80 E' Laterial: 8.09 E/E' Lat: 11.80 Right Ventricle TAPSE (mm): 12.60 TVS' Ethan: 8.63 Tricuspid Valve TR Pk Ethan: 2.35 TR Pk Grad: 22.00 RA Press: 8.00 RVSP: 30.00 Great Vessels Aorta Sinus of Valsalva: 3.80 2.0-3.5 cm Ao Asc: 3.70 2.1-3.4 cm Pulmonary Valve PV Pk Ethan: 0.88 Peak PV Grad: 3.00 Updated in Other Vendor System with Status of Final Abdi Barone MD electronically signed on 05/07/2024 3:34:13 PM with status of Final
[2024-05-07 09:50] LABS: MANUAL DIFF FLAG NO
--- NOTE | 2024-05-07 09:53 | ED.GENADULT ---
HPI - General Adult General Chief complaint: General Medical Stated complaint: afib Time Seen by Provider: 05/07/24 09:26 History of Present Illness HPI narrative: Patient is a 53-year-old male with a history of atrial fibrillation. Not on blood thinners. Patient got a cardioversion about a year ago. Presents today with having 6 day history of palpitation. Patient is from home. There is no fever no chills. No coughing or congestion or upper respiratory symptoms. No chest pain. Happened abruptly. No history of alcohol abuse. No diaphoresis. Patient has been compliant with his metoprolol which he takes twice a day. Related Data Home Medications ?Medication ?Instructions ?Recorded ?Confirmed hydroxyzine HCl 50 mg tablet 50 mg PO TID 04/18/23 05/07/24 mirtazapine 30 mg tablet 30 mg PO BEDTIME 04/18/23 05/07/24 olanzapine 10 mg tablet 10 mg PO BEDTIME 04/18/23 05/07/24 Previous Rx's ?Medication ?Instructions ?Recorded ibuprofen 800 mg tablet 800 mg PO Q8H 10 days #30 tabs 06/19/21 metoprolol tartrate 100 mg tablet 100 mg PO BID 90 days #180 tabs 04/11/24 aspirin 81 mg tablet,delayed 81 mg PO DAILY #90 tabs 04/27/24 release (Adult Aspirin Regimen) Allergies Allergy/AdvReac Type Severity Reaction Status Date / Time No Known Allergies Allergy Verified 05/07/24 09:28 Review of Systems Review of Systems: Positive palpitation Yes all other systems are reviewed and are negative PMFSH Past Medical History Attestation statement: The following information was validated with the patient. Medical History Ruptured epidermal cyst History of cardioversion Sleep apnea Subcutaneous mass Arrhythmia Surgical History History of excision of epidermal inclusion cyst (~04/25/23) Status post excision of lipoma Family History Family History Father CVD (cardiovascular disease) Mother Multiple sclerosis Social History Social History Housing: House Alcohol intake: current Alcohol intake frequency: holidays/special occasions only Alcohol type: beer Patient Tobacco Use Status: Never used Tobacco Smoked in Last 30 Days: No e-Cigarette/Vaping Use: Never Used Second Hand Smoke Exposure: No Use of substances other than those prescribed or required for medical reasons: Yes Substance Use Type: Marijuana Substance Use Frequency: Occasionally Advance Directives: No Advance Directives Information Provided: Yes Do you have a plan to hurt others: No Plan service: No Current occupational status: employed 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 Oriented X3. No acute distress. Eyes: Pupils equal, round and reactive to light. ENT: Pharynx normal. Neck: Normal inspection. Neck supple. No lymph nodes noted. No crepitus CVS: Irregularly irregular tachycardic Respiratory: No respiratory distress. Breath sounds normal. No Wheezing. No rales Abdomen: Soft and nontender. No rigidity. No distention. good BS x4 Skin: Skin warm and dry. Normal skin color. Normal skin turgor. Extremities: No lower extremity edema. Neurovascular intact to all extremities. No Lacerations. No Rash Neuro: Oriented X 3. No motor deficit. No sensory deficit. Moving all extermities. No slurred speech Medications Administered Discontinued Medications Generic Name Dose Route Start Last Admin Trade Name Freq PRN Reason Stop Dose Admin Aspirin 324 mg 05/07/24 09:50 05/07/24 09:55 Aspirin 81 Mg Tab.Chew PO 05/07/24 09:51 324 mg ONCE ONE Administration Sodium Chloride 500 mls @ 999 mls/hr 05/07/24 10:30 05/07/24 10:56 Ns IV 05/07/24 11:00 Infused .Q31M PERRY Infusion Metoprolol Tartrate 5 mg 05/07/24 09:50 05/07/24 09:55 Metoprolol Tartrate 5 Mg/5 Ml Vial IVPUSH 05/07/24 09:51 5 mg ONCE ONE Administration Protocol Metoprolol Tartrate 5 mg 05/07/24 10:03 05/07/24 10:57 Metoprolol Tartrate 5 Mg/5 Ml Vial IVPUSH 05/07/24 10:04 5 mg ONCE ONE Administration Protocol Medical Decision Making Medical Decision Making [facility] Narrative: Patient presents today with having atrial fibrillation my interpretation patient's initial EKG showed a heart rate approximately 150 in atrial fibrillation. Patient was given aspirin. Given multiple doses of metoprolol heart rate is now approximately 110 with a good blood pressure. Patient will require admission for further rate control and monitoring. Case discussed with hospitalist team I agree with plan Differential Diagnosis Differential Diagnoses: The differential diagnosis associated with the presentation includes Hospitalist Admission/Observation Consideration of admission/observation: Escalation of care including admission/observation considered Consult Healthcare Provider Management of the patient was discussed with: Hospitalist Lab Data [facility] Lab Attestation statement: I reviewed the patient's lab results. 05/07/24 09:30 05/07/24 09:30 Labs: Lab Results 05/07/24 Range/Units 09:30 WBC 11.5 H (4.8-10.8) X10*3/uL RBC 4.74 (4.60-5.80) X10*6/uL Hgb 13.5 L (14.0-18.0) g/dl Hct 39.4 L (42.0-52.0) % MCV 83.1 (80.0-98.0) fL MCH 28.5 (27.0-33.0) pg MCHC 34.3 (31.0-36.0) g/dl RDW 14.6 (11.0-16.0) % Plt Count 282 (160-400) X10*3/uL MPV 10.9 (9.4-12.4) fL Immature Gran % (Auto) 0.4 (0.0-0.4) % Neut % (Auto) 56.1 (45-73) % Lymph % (Auto) 35.9 (20-40) % [place] % (Auto) 6.2 (2-11) % Eos % (Auto) 1.0 (0-4) % Baso % (Auto) 0.4 (0-2) % Lymph # (Auto) 4.1 (1.2-4.9) X10*3/uL [place] # (Auto) 0.7 (0.1-1.2) X10*3/uL Eos # (Auto) 0.1 (0.0-0.4) X10*3/uL Baso # (Auto) 0.1 (0.0-0.2) X10*3/uL Abs Immat Gran (auto) 0.05 H (0.00-0.03) X10*3/uL Absolute Neuts (auto) 6.5 (2.0-8.3) x10*3/uL Absolute Nucleated RBC 0.050 H (0.0-0.012) X10*3/uL Nucleated RBC % (auto) 0.4 H (0.0-0.2) /100WBC ESR 3 (0-15) MM/HR APTT 27.7 (26.0-36.8) SEC Sodium 143 (135-145) mmol/L Potassium 4.0 (3.3-5.1) mmol/L Chloride 113 H (96-108) mmol/L Carbon Dioxide 22 (22-29) mmol/L Anion Gap 12 (12-20) BUN 16 (9-16) mg/dL Creatinine 1.17 (0.5-1.4) mg/dL Estim Creat Clear Calc 84.6 Estimated GFR > 60 Random Glucose 129 H (60-115) mg/dL Calcium 9.1 (8.4-10.2) mg/dL Total Bilirubin 0.6 (0.0-1.0) mg/dL AST 55 H (5-37) U/L ALT 110 H (0-40) U/L Alkaline Phosphatase 82 (39-117) U/L Total Protein 6.2 L (6.5-8.0) g/dL Albumin 3.7 (3.5-5.0) g/dL TSH 4.41 H (0.32-4.0) uIU/mL Independent Interpretation I performed an independent interpretation of an: EKG (Atrial fibrillation heart rate 150) External Record Review External record reviewed: Office record Chronic Conditions History of atrial fibrillation not on anticoagulation Critical Care Time Critical Care Time Critical Care Time: Yes Total Critical Care Time: 40 Attestation: I have personally provided 40 minutes of critical care time exclusive of time spent on separately billable procedures. ?Time includes review of lab data, radiology results, discussion with consultants, and monitoring for potential decompensation. ?Interventions were performed as documented above Discharge Plan Discharge Clinical Impression: Atrial fibrillation Patient Disposition: Admitted As Inpatient Prescriptions: No Action ibuprofen 800 mg tablet 800 mg PO Q8H 10 Days Qty: 30 0RF metoprolol tartrate 100 mg tablet 100 mg PO BID 90 Days Qty: 180 1RF aspirin [Adult Aspirin Regimen] 81 mg tablet,delayed release (DR/EC) 81 mg PO DAILY Qty: 90 2RF olanzapine 10 mg tablet 10 mg PO BEDTIME mirtazapine 30 mg tablet 30 mg PO BEDTIME hydroxyzine HCl 50 mg tablet 50 mg PO TID Print Language: Azeri
[2024-05-07 09:55] LABS: Basophils Absolute Auto 0.1 X10*3/uL (0.0-0.2); Basophils Percent Auto 0.4 % (0-2); Eosinophils Absolute Auto 0.1 X10*3/uL (0.0-0.4); Hematocrit 39.4 % (42.0-52.0); Hemoglobin 13.5 g/dl (14.0-18.0); Imm Gran Abs Auto 0.05 X10*3/uL (0.00-0.03); Imm Gran Pct Auto 0.4 % (0.0-0.4); Lymphocytes Absolute Auto 4.1 X10*3/uL (1.2-4.9); Lymphocytes Percent Auto 35.9 % (20-40); Mean Corpuscular HGB Conc 34.3 g/dl (31.0-36.0); Mean Corpuscular Hemoglobin 28.5 pg (27.0-33.0); Mean Corpuscular Volume 83.1 fL (80.0-98.0); Mean Platelet Volume 10.9 fL (9.4-12.4); Monocytes Absolute Auto 0.7 X10*3/uL (0.1-1.2); Monocytes Percent Auto 6.2 % (2-11); NRBC Pct Auto 0.4 /100WBC (0.0-0.2); Neutrophils Absolute Auto 6.5 x10*3/uL (2.0-8.3); Neutrophils Percent Auto 56.1 % (45-73); Platelet Count 282 X10*3/uL (160-400); Red Blood Count 4.74 X10*6/uL (4.60-5.80); Red Cell Distribution Width 14.6 % (11.0-16.0); White Blood Count 11.5 X10*3/uL (4.8-10.8)
[2024-05-07] MEDS: Aspirin 81 MG TAB.CHEW 324 MG PO (09:55)
[2024-05-07] MEDS: Metoprolol Tartrate 5 MG/5 ML VIAL IVPUSH ×3 (09:55→12:08)
[2024-05-07 10:03] LABS: Partial Thromboplastin Time 27.7 SEC (26.0-36.8)
[2024-05-07 10:15] LABS: Alanine Aminotransferase 110 U/L (0-40); Albumin Level 3.7 g/dL (3.5-5.0); Alkaline Phosphatase 82 U/L (39-117); Anion Gap 12 (12-20); Aspartate Amino Transferase 55 U/L (5-37); Bilirubin Total 0.6 mg/dL (0.0-1.0); Blood Urea Nitrogen 16 mg/dL (9-16); Calcium 9.1 mg/dL (8.4-10.2); Carbon Dioxide 22 mmol/L (22-29); Chloride 113 mmol/L (96-108); Creatinine Clr Calc Pharmacy 84.6; Estimated Glomerular Filt Rate > 60; Glucose Random 129 mg/dL (60-115); Sodium 143 mmol/L (135-145); Total Protein 6.2 g/dL (6.5-8.0)
--- NOTE | 2024-05-07 10:22 | PC.NURSE ---
Pt comes to ED today with c/o dizziness, lightheaded and general unwell feeling. Pt reports Hx afib and felt unwell since Saturday05/01/24. Pt arrives with EKG from primary indicating afib. BP stable, HR ranges from 130-157. Skin is warm and dry Breaths and speech are unlabored. 20g RAC placed, EKG, blood labs and cardiac monitoring completed upon Pt arrival. IV Metoprolol per SEP, BP 104/76 [address] Lamar. Orders for 500ml bolus and reassessment ordered.
[2024-05-07 10:30] LABS: Thyroid Stimulating Hormone 4.41 uIU/mL (0.32-4.0)
[2024-05-07] MEDS: 0.9 % Sodium Chloride 500 ML 999 ML IV (10:32)
[2024-05-07 10:34] LABS: Erythrocyte Sedimentation Rate 3 MM/HR (0-15)
[2024-05-07 11:18] LABS: Troponin-I High Sensitivity 12.4 ng/L (<3.5-35.0)
--- NOTE | 2024-05-07 11:39 | PHA.MEDREC ---
Addendum entered by Laura Kaur RPh 05/07/24 11:51: Chris REVIEWED Original Note: Pharmacy Consult ? Medication Reconciliation Pharmacy has completed the medication reconciliation. Patient confirmed medications. Patient confirmed he is taking his Olanzipine 10mg tablet in the morning and took that along with his other morning medications this morning. He confirmed he still has the Ibuprofen 800mg tablets still at home for absolute pain.
--- NOTE | 2024-05-07 12:14 | PC.NURSE ---
pt medicated per MAR, afib on monitor w HR between 98-146, other vss remain stable.
[2024-05-07] MEDS: Enoxaparin Sodium 100 MG/ML SYRINGE SUBCUT (12:54)
[2024-05-07] MEDS: dilTIAZem HCL 125 MG in 0.9 % Sodium Chloride 100 ML 10 MG IVCONT (13:05)
--- NOTE | 2024-05-07 13:43 | PC.NURSE ---
13[address] Cardizem drip initiated per Dr. Lopez. HR 135 Re-assessment 1325 HR 116--no titration change to Cardizem.
--- NOTE | 2024-05-07 14:31 | P.HPHOSP_ITS ---
History of Present Illness Date of Service: 05/07/24 Chief Complaint: Rapid heartbeat 53-year-old male with history of atrial fibrillation on no anticoagulation presents today with feeling of a rapid heartbeat that started approximately 4-5 days ago. He states his last episode was approximately 1 year ago for which he received a cardioversion and has been fine up until that time. He states that he began feeling these rapid heart rates intermittently and they became persistent. He waited out hoping it would resolve spontaneously however did not. He presents to ER with a ventricular response rate of 130-140. He denies any recent viral illnesses nausea vomiting diarrhea. I will workup negative. In the ER received 2 doses of IV Lopressor and admission was requested Review of Systems 2 Review of Systems: Denies chest pain Denies shortness of breath Denies nausea vomiting diarrhea Denies fever chills Admits to rapid intermittent heartbeat [facility] Medical History Ruptured epidermal cyst History of cardioversion Sleep apnea Subcutaneous mass Arrhythmia Family History Father CVD (cardiovascular disease) Mother Multiple sclerosis Surgical History History of excision of epidermal inclusion cyst (~04/25/23) Status post excision of lipoma Social History Housing: House Alcohol intake: current Alcohol intake frequency: holidays/special occasions only Alcohol type: beer Patient Tobacco Use Status: Never used Tobacco Smoked in Last 30 Days: No e-Cigarette/Vaping Use: Never Used Second Hand Smoke Exposure: No Use of substances other than those prescribed or required for medical reasons: Yes Substance Use Type: Marijuana Substance Use Frequency: Occasionally Advance Directives: No Advance Directives Information Provided: Yes Do you have a plan to hurt others: No Plan Nutrition Risks: No Nutritional Risk service: No Current occupational status: employed 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 Current occupational exposures/hazards: No Cognitive needs: No Hearing needs: No Vision needs: No Meds Allergies Allergy/AdvReac Type Severity Reaction Status Date / Time No Known Allergies Allergy Verified 05/07/24 09:28 Active Medications: Current Medications Acetaminophen (Acetaminophen 325 Mg Tablet) 650 mg PO Q6H PRN PRN Reason: Pain, Mild (Pain Scale 1-3), fever or headache Aspirin (Aspirin Enteric Coated 81 Mg Tablet.Dr) 81 mg PO DAILY [facility] Calcium Carbonate (Calcium Carbonate 750 Mg Tab.Chew) 750 mg PO Q4H PRN PRN Reason: Heartburn Hydroxyzine HCl (Hydroxyzine Hcl 50 Mg Tablet) 50 mg PO TID [facility] Diltiazem HCl 125 mg/ Sodium (Chloride) 125 mls @ 0 mls/hr IVCONT .Q0M [facility]; Protocol Last Admin: 05/07/24 13:05 Dose: 10 mg/hr, 10 mls/hr Magnesium Hydroxide (Milk Of Magnesia 30 Ml Oral.Susp) 30 ml PO DAILY PRN PRN Reason: Constipation Melatonin (Melatonin 3 Mg Tablet) 6 mg PO BEDTIME PRN PRN Reason: Insomnia Metoprolol Tartrate (Metoprolol Tartrate 100 Mg Tablet) 100 mg PO BID [facility]; Protocol Mirtazapine (Mirtazapine 15 Mg Tablet) 45 mg PO BEDTIME [facility] Olanzapine (Olanzapine 10 Mg Tablet) 10 mg PO DAILY [facility] Sodium Chloride (0.9 % Sodium Chloride Flush 3 Ml Syringe) 3 ml IVFLUSH QSHIFT [facility] Home Medications ?Medication ?Instructions ?Recorded ?Confirmed ?Last Taken ?Type hydroxyzine HCl 50 mg tablet 50 mg PO TID 04/18/23 05/07/24 05/07/24 History olanzapine 10 mg tablet 10 mg PO DAILY 04/18/23 05/07/24 05/07/24 History ibuprofen 800 mg tablet 800 mg PO Q8H PRN Pain 05/07/24 05/07/24 05/07/24 History mirtazapine 45 mg tablet 45 mg PO BEDTIME 05/07/24 05/07/24 05/06/24 History Physical Exam 2 Vital Signs and Narrative: Vital Signs: Last Vital Signs Pulse 97 05/07/24 14:10 Resp 20 05/07/24 14:10 BP 113/91 H 05/07/24 14:10 Pulse Ox 95 05/07/24 14:10 O2 Del Method Room Air 05/07/24 14:10 BMI result Body Mass Index 35.7 Const: Other: Awake alert no acute distress Resp: Other: Clear to auscultation bilaterally no rales rhonchi or wheezes Cardio: Other: Irregularly irregular/tachycardic. Positive S1-S2; no S3 murmurs rubs or gallops GI: Other: Soft nontender nondistended normoactive bowel sounds Neuro: Other: Cranial nerves 2-12 grossly intact as tested. Motor is 5/5 all extremities. Sensation is intact. Extrem: Other: No edema bilaterally Results Labs 05/07/24 09:30 05/07/24 09:30 Labs: Laboratory Results - last 24 hr 05/07/24 09:30 MCV 83.1 MCH 28.5 MCHC 34.3 RDW 14.6 Plt Count 282 MPV 10.9 Immature Gran % (Auto) 0.4 Neut % (Auto) 56.1 Lymph % (Auto) 35.9 [place] % (Auto) 6.2 Eos % (Auto) 1.0 Baso % (Auto) 0.4 Lymph # (Auto) 4.1 [place] # (Auto) 0.7 Eos # (Auto) 0.1 Baso # (Auto) 0.1 Abs Immat Gran (auto) 0.05 H Absolute Neuts (auto) 6.5 Absolute Nucleated RBC 0.050 H Nucleated RBC % (auto) 0.4 H ESR 3 APTT 27.7 Anion Gap 12 Estim Creat Clear Calc 84.6 Estimated GFR > 60 Random Glucose 129 H Calcium 9.1 Total Bilirubin 0.6 AST 55 H ALT 110 H Alkaline Phosphatase 82 Troponin I High Sens 12.4 Total Protein 6.2 L Albumin 3.7 TSH 4.41 H Assessment and Plan (1) Atrial fibrillation with rapid ventricular response: Status: Acute Plan 53-year-old male with history of atrial fibrillation status post ablation approximately 1 year ago who has been feeling fine without arrhythmias presents today with 4-5 days of rapid heart rate and mild lightheadedness. Emergency evaluation demonstrates atrial fibrillation with a rapid ventricular response 130s to 140s in the absence of chest pain. Patient received 2 doses of IV Lopressor without effect 1. Atrial fibrillation with rapid ventricular response -total of 3 doses of Lopressor without effect; Cardizem drip started as per protocol -received 1 L of saline in ER; we will continue at 01:50 an hour -initial dose of Lovenox 1 milligram/kilogram given; start Eliquis tonight -2D echo -cardiology consult 2. Depression/anxiety -stable well compensated -continue outpatient therapies Patient will require 2 midnights going forward of inpatient stay for IV Cardizem to maintain heart rate and specialty consultation. This can not be achieved a lesser acute setting Quality Stroke Does the patient have a stroke diagnosis?: No VTE Prior VTE?: No VTE Risk Level:: Medical - moderate - high VTE Device Contraindication: Treatment Not Indicated VTE Drug Contraindication: N/A - Med Ordered
[2024-05-07] MEDS: hydrOXYzine HCL 50 MG TABLET PO ×2 (15:17→21:20)
[2024-05-07] MEDS: 0.9 % Sodium Chloride Flush 3 ML SYRINGE IVFLUSH ×2 (15:18→23:49)
--- NOTE | 2024-05-07 16:49 | PC.NURSE ---
Pt continued to be stable on Cardizem drip. HR slowly declined over time (see clinical values) and drip was stopped at 1436. Dr. Lopez aware drip was ended, no new orders received. Echo completed VS continue to be stable and Pt reports he has noted an overall improvement in how he feels. Pt awaiting room assignment.
--- NOTE | 2024-05-07 20:50 | PC.NURSE ---
Dr. Charles updated on HR 120-160, BP 101/83. Patient asymptomatic, denies chest pain/SOB/dizziness/lightheadedness. Patient medicated with Metoprolol 100 mg PO, no new orders at this time.
[2024-05-07] MEDS: Mirtazapine 15 MG TABLET 45 MG PO (21:20)
[2024-05-07] MEDS: Metoprolol Tartrate 100 MG TABLET PO (21:21)
[2024-05-07] MEDS: Apixaban 5 MG TABLET PO (21:21)
--- NOTE | 2024-05-07 22:03 | PC.NURSE ---
Dr. Banuelos contacted, reported to MD HR remaining 120-160's, BP 123/86, O2 Sat 96-97% RA. Patient denies chest pain/SOB/dizziness/headache. Per Dr. Banuelos, restart Cardizem drip at 10 mg/hr, monitor heart rate, titrate Cardizem drip per protocol.
--- NOTE | 2024-05-07 22:07 | PC.NURSE ---
Cardizep drip restarted at 10 mg/hr via 20 G IV line in RAC
--- NOTE | 2024-05-07 22:23 | PC.NURSE ---
Cardizem drip titrated to 15 mg/hr per protocol for HR 120-143.
--- NOTE | 2024-05-07 23:41 | PC.NURSE ---
HR 80-90, DR. Banuelos notified. Cardizem drip on hold per MD order, plan to medicate patient with Diltiazem 30 mg PO.
[2024-05-07] MEDS: dilTIAZem HCL 30 MG TABLET PO (23:48)
[2024-05-08] VITALS (16 sets, daily range): BP systolic 115–171; BP diastolic 62–95; PULSE 67–132; RESP 16–20; TEMP 36.6–37.1; O2SAT 93–99
[2024-05-08] MEDS: dilTIAZem HCL 50 MG/10 ML VIAL 10 MG IVPUSH (05:10)
--- NOTE | 2024-05-08 05:13 | PC.NURSE ---
approx 0445, pt in afib RVR sustaining in 120s, touching into 150s. pt calm but reports palpitations without any CP. BP 122/90. MD notified. cardizem 10mg IVP ordered.
[2024-05-08 07:50] LABS: Basophils Absolute Auto 0.1 X10*3/uL (0.0-0.2); Basophils Percent Auto 0.5 % (0-2); Eosinophils Absolute Auto 0.1 X10*3/uL (0.0-0.4); Eosinophils Percent Auto 0.7 % (0-4); Hematocrit 35.5 % (42.0-52.0); Hemoglobin 12.4 g/dl (14.0-18.0); Imm Gran Abs Auto 0.03 X10*3/uL (0.00-0.03); Imm Gran Pct Auto 0.3 % (0.0-0.4); Lymphocytes Absolute Auto 3.2 X10*3/uL (1.2-4.9); Lymphocytes Percent Auto 31.1 % (20-40); MANUAL DIFF FLAG NO; Mean Corpuscular HGB Conc 34.9 g/dl (31.0-36.0); Mean Corpuscular Hemoglobin 28.7 pg (27.0-33.0); Mean Corpuscular Volume 82.2 fL (80.0-98.0); Mean Platelet Volume 10.5 fL (9.4-12.4); Monocytes Absolute Auto 0.6 X10*3/uL (0.1-1.2); Monocytes Percent Auto 5.9 % (2-11); NRBC Pct Auto 0.3 /100WBC (0.0-0.2); Neutrophils Absolute Auto 6.3 x10*3/uL (2.0-8.3); Neutrophils Percent Auto 61.5 % (45-73); Platelet Count 232 X10*3/uL (160-400); Red Blood Count 4.32 X10*6/uL (4.60-5.80); Red Cell Distribution Width 14.6 % (11.0-16.0); White Blood Count 10.3 X10*3/uL (4.8-10.8)
[2024-05-08] MEDS: dilTIAZem HCL 125 MG in 0.9 % Sodium Chloride 100 ML 10 MG IVCONT (07:53)
[2024-05-08] MEDS: 0.9 % Sodium Chloride Flush 3 ML SYRINGE IVFLUSH ×2 (08:00→16:25)
--- NOTE | 2024-05-08 08:14 | MHC.CM.PN ---
CM met with Patient at bedside. 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 Home/self care is the goal and CM has initiated and will follow for dc planning. PCP/PA is Nish Amaral and will transport to home.
[2024-05-08 08:15] LABS: Albumin Level 3.5 g/dL (3.5-5.0); Anion Gap 13 (12-20); Aspartate Amino Transferase 47 U/L (5-37); Bilirubin Total 0.8 mg/dL (0.0-1.0); Blood Urea Nitrogen 15 mg/dL (9-16); Calcium 8.5 mg/dL (8.4-10.2); Carbon Dioxide 20 mmol/L (22-29); Chloride 114 mmol/L (96-108); Creatinine Clr Calc Pharmacy 107.6; Estimated Glomerular Filt Rate > 60; Glucose Fasting 110 mg/dL (60-99); Potassium 3.9 mmol/L (3.3-5.1); Sodium 143 mmol/L (135-145)
[2024-05-08 08:19] LABS: Alanine Aminotransferase 94 U/L (0-40); Alkaline Phosphatase 73 U/L (39-117)
[2024-05-08] MEDS: OLANZapine 10 MG TABLET PO (10:27)
[2024-05-08] MEDS: dilTIAZem HCL 30 MG TABLET PO (10:27)
[2024-05-08] MEDS: hydrOXYzine HCL 50 MG TABLET PO ×3 (10:27→20:36)
[2024-05-08] MEDS: Apixaban 5 MG TABLET PO ×2 (10:27→20:36)
--- NOTE | 2024-05-08 10:38 | P.CONCA_ITS ---
History of Present Illness History of Present Illness Date of Service: 05/08/24 Chief complaint: Atrial fibrillation w/ rapid ventricular response Narrative: This is a cardiology consultation regarding atrial fibrillation. 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 Over the last few months, he states he has had palpitations off and on. Some days he feels it more than others. He is not on any anticoagulation. Per his own description, previous cardioversion but we could not find any records. No other complaints like angina or shortness of breath. Sometimes he can get dizzy. He can not remember any prior stencil typist. There is [facility] note from 2015 which describes paroxysmal atrial fibrillation and mild cardiomyopathy. Review of Systems 2 Review of Systems: Yes all other systems are reviewed and are negative Constitutional: Constitutional: Reports as per HPI and Reports no additional constitutional complaints Eyes: Eyes: Reports as per HPI and Denies no additional eye complaints ENT: Denies system reviewed and no additional complaints, except as documented and Reports as per HPI Cardiovascular: Cardiovascular: Reports as per HPI, Reports no additional cardiovascular complaints, Denies acrocyanosis, Denies cool extremities, Denies chest pain, Denies leg edema, Denies lightheadedness, Reports palpitations and Denies dyspnea Respiratory: Respiratory: Reports as per HPI, Denies no additional respiratory complaints and Denies dyspnea Gastrointestinal: Gastrointestinal: Reports as per HPI and Denies no additional gastrointestinal complaints Genitourinary: Genitourinary: Reports no additional male genitourinary complaints and Reports as per HPI Musculoskeletal: Musculoskeletal: Reports no additional musculoskeletal complaints and Reports as per HPI Integumentary/Breasts: Skin/Breast: Reports system reviewed and no additional complaints, except as docu Neurologic: Reports system reviewed and no additional complaints, except as documented and Reports as per HPI Psychiatric: Psychiatric: Reports no additional psychiatric complaints and Reports as per HPI Endocrine: Endocrine: Reports no additional endocrine complaints, Reports as per HPI and Reports palpitations Hematologic/Lymphatic: Hematologic/Lymphatic: Reports no additional hematologic/lymphatic complaints and Reports as per HPI Allergic/Immunologic: Allergic/Immunologic: Reports no additional allergic/immunologic complaints and Reports as per HPI PMFSH Past Medical History Medical History Ruptured epidermal cyst History of cardioversion Sleep apnea Subcutaneous mass Arrhythmia Family History Family History Father CVD (cardiovascular disease) Mother Multiple sclerosis Surgical History Surgical History History of excision of epidermal inclusion cyst (~04/25/23) Status post excision of lipoma Social History Social History Household Members: Spouse Housing: House Do you presently have visiting nurse or other home services: No Alcohol intake: current Alcohol intake frequency: holidays/special occasions only Alcohol type: beer Patient Tobacco Use Status: Never used Tobacco e-Cigarette/Vaping Use: Never Used Second Hand Smoke Exposure: No Substance Use Type: Marijuana service: No Current occupational status: employed 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 Current occupational exposures/hazards: No Cognitive needs: No Hearing needs: No Vision needs: No Meds Allergies Allergy/AdvReac Type Severity Reaction Status Date / Time No Known Allergies Allergy Verified 05/07/24 09:28 Active Medications: Current Medications Acetaminophen (Acetaminophen 325 Mg Tablet) 650 mg PO Q6H PRN PRN Reason: Pain, Mild (Pain Scale 1-3), fever or headache Apixaban (Apixaban 5 Mg Tablet) 5 mg PO BID [facility] Last Admin: 05/08/24 10:27 Dose: 5 mg Aspirin (Aspirin Enteric Coated 81 Mg Tablet.Dr) 81 mg PO DAILY [facility] Last Admin: 05/08/24 10:21 Dose: Not Given Calcium Carbonate (Calcium Carbonate 750 Mg Tab.Chew) 750 mg PO Q4H PRN PRN Reason: Heartburn Diltiazem HCl (Diltiazem Hcl 30 Mg Tablet) 30 mg PO QID [facility]; Protocol Last Admin: 05/08/24 10:27 Dose: 30 mg Hydroxyzine HCl (Hydroxyzine Hcl 50 Mg Tablet) 50 mg PO TID [facility] Last Admin: 05/08/24 10:27 Dose: 50 mg Diltiazem HCl 125 mg/ Sodium (Chloride) 125 mls @ 0 mls/hr IVCONT .Q0M [facility]; Protocol Magnesium Hydroxide (Milk Of Magnesia 30 Ml Oral.Susp) 30 ml PO DAILY PRN PRN Reason: Constipation Melatonin (Melatonin 3 Mg Tablet) 6 mg PO BEDTIME PRN PRN Reason: Insomnia Metoprolol Tartrate (Metoprolol Tartrate 100 Mg Tablet) 100 mg PO BID [facility]; Protocol Last Admin: 05/07/24 21:21 Dose: 100 mg Mirtazapine (Mirtazapine 15 Mg Tablet) 45 mg PO BEDTIME [facility] Last Admin: 05/07/24 21:20 Dose: 45 mg Olanzapine (Olanzapine 10 Mg Tablet) 10 mg PO DAILY [facility] Last Admin: 05/08/24 10:27 Dose: 10 mg Sodium Chloride (0.9 % Sodium Chloride Flush 3 Ml Syringe) 3 ml IVFLUSH QSHIFT [facility] Last Admin: 05/08/24 08:00 Dose: 3 ml Home Medications ?Medication ?Instructions ?Recorded ?Confirmed ?Last Taken ?Type hydroxyzine HCl 50 mg tablet 50 mg PO TID 04/18/23 05/07/24 05/07/24 History olanzapine 10 mg tablet 10 mg PO DAILY 04/18/23 05/07/24 05/07/24 History ibuprofen 800 mg tablet 800 mg PO Q8H PRN Pain 05/07/24 05/07/24 05/07/24 History mirtazapine 45 mg tablet 45 mg PO BEDTIME 05/07/24 05/07/24 05/06/24 History Physical Exam 2 Vital Signs: Vital Signs: Last Vital Signs Temp 98.0 F 05/08/24 07:47 Pulse 87 05/08/24 10:27 Resp 18 05/08/24 07:47 BP 129/91 H 05/08/24 10:27 Pulse Ox 94 05/08/24 07:47 O2 Del Method Room Air 05/08/24 07:47 BMI result Body Mass Index 35.7 Const: General: comfortable and no acute distress O rientation/consciousness: patient oriented x3 HEENT: Other: Unremarkable Head: Yes normal to inspection Neck: Neck: Yes normal visual inspection Chest: Chest palpation & inspection: normal inspection of the chest Resp: Auscultation: clear to auscultation bilaterally Cardio: Palpation: normal PMI Heart sounds: S1 normal heart sound present, S2 normal heart sound present, no gallops, no murmurs and no rubs GI: Palpation (GI): Soft to palpation Back/Spine/Pelvis: Other: unremarkable Skin: General skin exam: no rashes or lesions noted Neuro: General: patient oriented x3 Extrem: General: Yes normal to inspection Psych: Mental Status: mental status grossly normal Objective Labs and Meds 05/08/24 07:40 05/08/24 07:40 Lab results: Laboratory Results - last 24 hr 05/07/24 05/08/24 09:30 07:40 WBC 10.3 RBC 4.32 L Hgb 12.4 L Hct 35.5 L MCV 82.2 MCH 28.7 MCHC 34.9 RDW 14.6 Plt Count 232 MPV 10.5 Immature Gran % (Auto) 0.3 Neut % (Auto) 61.5 Lymph % (Auto) 31.1 [place] % (Auto) 5.9 Eos % (Auto) 0.7 Baso % (Auto) 0.5 Lymph # (Auto) 3.2 [place] # (Auto) 0.6 Eos # (Auto) 0.1 Baso # (Auto) 0.1 Abs Immat Gran (auto) 0.03 Absolute Neuts (auto) 6.3 Absolute Nucleated RBC 0.030 H Nucleated RBC % (auto) 0.3 H Sodium 143 Potassium 3.9 Chloride 114 H Carbon Dioxide 20 L Anion Gap 13 BUN 15 Creatinine 0.92 Estim Creat Clear Calc 107.6 Estimated GFR > 60 Fasting Glucose 110 H Calcium 8.5 D Magnesium 2.0 Total Bilirubin 0.8 AST 47 H ALT 94 H Alkaline Phosphatase 73 Troponin I High Sens 12.4 Total Protein 6.0 L Albumin 3.5 ECG Interpretation: EKG with atrial fibrillation at a rate of 142/Min. Assessment and Plan (1) Atrial fibrillation with rapid ventricular response: Status: Acute Plan On telemetry, atrial fibrillation with controlled rate but he is on a Cardizem drip. Initially, he was in atrial fibrillation rapid rate. Also started Eliquis. Suspect he may have had off and on or persistent atrial fibrillation for the last few months but not clear. In the echocardiogram, LVEF is 45-50%. We will plan on JUDIE/cardioversion today. Keep NPO. Procedures Date of Service Date of Service: 05/08/24
--- NOTE | 2024-05-08 13:24 | P.CONAN_ITS ---
[facility] Active Problems Active Problems: All Active Problems Atrial fibrillation with rapid ventricular response (Acute) Atrial fibrillation (Acute) BPPV (benign paroxysmal positional vertigo) (Acute) [place]ol[place] of right eye (Acute) Ruptured epidermal cyst (Acute) Subcutaneous cyst (Acute) Colon cancer screening (Acute) Lumbar spine strain (Acute) Screening for hypothyroidism (Acute) Screening for hypercholesterolemia (Acute) Screening for diabetes mellitus (DM) (Acute) Afib (Acute) Annual physical exam (Acute) Lipoma (Acute) Subcutaneous mass (Acute) Arrhythmia (Acute) Past Medical History Medical History Ruptured epidermal cyst History of cardioversion Sleep apnea Subcutaneous mass Arrhythmia Family History Family History Father CVD (cardiovascular disease) Mother Multiple sclerosis Family history of problems with anesthesia: No Surgical History Surgical History History of excision of epidermal inclusion cyst (~04/25/23) Status post excision of lipoma History of Problems with Anesthesia: No Social History Social History Household Members: Spouse Housing: House Do you presently have visiting nurse or other home services: No Alcohol intake: current Alcohol intake frequency: holidays/special occasions only Alcohol type: beer Patient Tobacco Use Status: Never used Tobacco e-Cigarette/Vaping Use: Never Used Second Hand Smoke Exposure: No Substance Use Type: Marijuana service: No Current occupational status: employed 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 Current occupational exposures/hazards: No Cognitive needs: No Hearing needs: No Vision needs: No Meds Allergies Allergy/AdvReac Type Severity Reaction Status Date / Time No Known Allergies Allergy Verified 05/08/24 14:29 Active Medications: Current Medications Acetaminophen (Acetaminophen 325 Mg Tablet) 650 mg PO Q6H PRN PRN Reason: Pain, Mild (Pain Scale 1-3), fever or headache Apixaban (Apixaban 5 Mg Tablet) 5 mg PO BID [facility] BEDS AT [facility] Last Admin: 05/08/24 10:27 Dose: 5 mg Aspirin (Aspirin Enteric Coated 81 Mg Tablet.Dr) 81 mg PO DAILY [facility] 234 BEDS AT [facility] Last Admin: 05/08/24 10:21 Dose: Not Given Calcium Carbonate (Calcium Carbonate 750 Mg Tab.Chew) 750 mg PO Q4H PRN PRN Reason: Heartburn Diltiazem HCl (Diltiazem Hcl 30 Mg Tablet) 30 mg PO QID [facility] 234 BEDS AT [facility]; Protocol Last Admin: 05/08/24 10:27 Dose: 30 mg Hydroxyzine HCl (Hydroxyzine Hcl 50 Mg Tablet) 50 mg PO TID [facility] 234 BEDS AT [facility] Last Admin: 05/08/24 10:27 Dose: 50 mg Diltiazem HCl 125 mg/ Sodium (Chloride) 125 mls @ 0 mls/hr IVCONT .Q0M [facility] 234 BEDS AT [facility]; Protocol Magnesium Hydroxide (Milk Of Magnesia 30 Ml Oral.Susp) 30 ml PO DAILY PRN PRN Reason: Constipation Melatonin (Melatonin 3 Mg Tablet) 6 mg PO BEDTIME PRN PRN Reason: Insomnia Metoprolol Tartrate (Metoprolol Tartrate 100 Mg Tablet) 100 mg PO BID [facility] 234 BEDS AT [facility]; Protocol Last Admin: 05/07/24 21:21 Dose: 100 mg Mirtazapine (Mirtazapine 15 Mg Tablet) 45 mg PO BEDTIME [facility]CLUDE 234 BEDS AT [facility] Last Admin: 05/07/24 21:20 Dose: 45 mg Olanzapine (Olanzapine 10 Mg Tablet) 10 mg PO DAILY [facility]CLUDE 234 BEDS AT [facility] Last Admin: 05/08/24 10:27 Dose: 10 mg Sodium Chloride (0.9 % Sodium Chloride Flush 3 Ml Syringe) 3 ml IVFLUSH QSHIFT [facility]CLUDE 234 BEDS AT [facility] Last Admin: 05/08/24 08:00 Dose: 3 ml Home Medications ?Medication ?Instructions ?Recorded ?Confirmed ?Last Taken ?Type hydroxyzine HCl 50 mg tablet 50 mg PO TID 04/18/23 05/07/24 05/07/24 History olanzapine 10 mg tablet 10 mg PO DAILY 04/18/23 05/07/24 05/07/24 History ibuprofen 800 mg tablet 800 mg PO Q8H PRN Pain 05/07/24 05/07/24 05/07/24 History mirtazapine 45 mg tablet 45 mg PO BEDTIME 05/07/24 05/07/24 05/06/24 History Exam Height,Weight and Vital Signs: Height 5 ft 7 in Weight 103.419 kg Last Vital Signs Temp 98.4 F 05/08/24 11:18 Pulse 94 05/08/24 11:18 Resp 16 05/08/24 11:18 BP 171/89 H 05/08/24 11:18 Pulse Ox 95 05/08/24 11:18 O2 Del Method Room Air 05/08/24 11:18 Pertinent Lab Results Pertinent Lab Results: Laboratory Tests 05/07/24 05/08/24 09:30 07:40 WBC 11.5 H 10.3 RBC 4.74 4.32 L Hgb 13.5 L 12.4 L Hct 39.4 L 35.5 L MCV 83.1 82.2 MCH 28.5 28.7 MCHC 34.3 34.9 RDW 14.6 14.6 Plt Count 282 232 MPV 10.9 10.5 Immature Gran % (Auto) 0.4 0.3 Neut % (Auto) 56.1 61.5 Lymph % (Auto) 35.9 31.1 [place] % (Auto) 6.2 5.9 Eos % (Auto) 1.0 0.7 Baso % (Auto) 0.4 0.5 Lymph # (Auto) 4.1 3.2 [place] # (Auto) 0.7 0.6 Eos # (Auto) 0.1 0.1 Baso # (Auto) 0.1 0.1 Abs Immat Gran (auto) 0.05 H 0.03 Absolute Neuts (auto) 6.5 6.3 Absolute Nucleated RBC 0.050 H 0.030 H Nucleated RBC % (auto) 0.4 H 0.3 H ESR 3 APTT 27.7 Sodium 143 143 Potassium 4.0 3.9 Chloride 113 H 114 H Carbon Dioxide 22 20 L Anion Gap 12 13 BUN 16 15 Creatinine 1.17 0.92 Estim Creat Clear Calc 84.6 107.6 Estimated GFR > 60 > 60 Random Glucose 129 H Fasting Glucose 110 H Calcium 9.1 8.5 D Magnesium 2.0 Total Bilirubin 0.6 0.8 AST 55 H 47 H ALT 110 H 94 H Alkaline Phosphatase 82 73 Troponin I High Sens 12.4 Total Protein 6.2 L 6.0 L Albumin 3.7 3.5 TSH 4.41 H Airway Mallampati Class: III TM Dist: >3cm Neck ROM: Full Loose/Missing/Broken Teeth: No Heart: RRR Lungs: CTA Assessment and Plan Assessment Anesthesia Assessment: Anesthesia Plan Discussed and Chart Reviewed Final Anesthetic Review Family History of Problems with Anesthesia: No History of Problems with Anesthesia: No NPO: Yes ASA Class: III Final Preanesthetic Review: Meds/Allgs Chart Reviewed, Consent Obtained/Reviewed and Anes Risks/Benef Reviewed Patient Risk: Intermediate Procedure Risk: Intermediate Anesthetic Plan Anesthetic Plan: MAC: Disposition: Standard PACU
--- NOTE | 2024-05-08 15:00 | MHC.SHP ---
Pre-Procedural Eval Section A - 24 Hr Update-Section A only Date of Service: 05/08/24 The patient is an INPATIENT: Yes Section B - Complete if H&P > 30 days Chief Complaint: Atrial fibrillation w/ rapid ventricular response Allergies: Allergies Allergy/AdvReac Type Severity Reaction Status Date / Time No Known Allergies Allergy Verified 05/08/24 14:29 Plan I have reviewed the history and physical and performed a pertinent physical examination on my patient. No changes have occurred unless specified. Time Spent With Patient Time: Total time managing care of this patient today ____ minutes.
--- NOTE | 2024-05-08 15:21 | ECG_ITS ---
Test Reason : S/P CARDIOVERSION Blood Pressure : / mmHG Vent. Rate : 083 BPM Atrial Rate : 083 BPM P-R Int : 162 ms QRS Dur : 096 ms QT Int : 406 ms P-R-T Axes : 055 -33 -01 degrees QTc Int : 477 ms Normal sinus rhythm Left axis deviation Abnormal ECG When compared with ECG of 07-MAY-2024 09:23, Sinus rhythm has replaced Atrial fibrillation Vent. rate has decreased BY 59 BPM Referred By: Esme Zuniga Electronically Signed By:ESME ZUNIGA
--- NOTE | 2024-05-08 15:22 | P.PNIM_ITS ---
Subjective Subjective Date of Service: 05/08/24 Interval History: No acute issues overnight. Remained in AFib on Cardizem drip. Review of Systems Denies chest pain Denies shortness of breath Denies nausea vomiting diarrhea Denies fever chills Admits to rapid intermittent heartbeat Physical Exam 2 Vital Signs: Vital Signs: Last Vital Signs Temp 98.2 F 05/08/24 14:31 Pulse 111 H 05/08/24 14:31 Resp 16 05/08/24 14:31 BP 132/79 05/08/24 14:31 Pulse Ox 97 05/08/24 14:31 O2 Del Method Room Air 05/08/24 14:31 BMI result Body Mass Index 35.7 Const: Other: Awake alert no acute distress Resp: Other: Clear to auscultation bilaterally no rales rhonchi or wheezes Cardio: Other: Irregularly irregular/tachycardic. Positive S1-S2; no S3 murmurs rubs or gallops GI: Other: Soft nontender nondistended normoactive bowel sounds Neuro: Other: Cranial nerves 2-12 grossly intact as tested. Motor is 5/5 all extremities. Sensation is intact. Extrem: Other: No edema bilaterally Objective Data Active Medications Acetaminophen (Acetaminophen 325 Mg Tablet) 650 mg PO Q6H PRN PRN Reason: Pain, Mild (Pain Scale 1-3), fever or headache Apixaban (Apixaban 5 Mg Tablet) 5 mg PO BID [facility] Last Admin: 05/08/24 10:27 Dose: 5 mg Documented By: IMELDA Calcium Carbonate (Calcium Carbonate 750 Mg Tab.Chew) 750 mg PO Q4H PRN PRN Reason: Heartburn Hydroxyzine HCl (Hydroxyzine Hcl 50 Mg Tablet) 50 mg PO TID [facility] Last Admin: 05/08/24 10:27 Dose: 50 mg Documented By: IMELDA Diltiazem HCl 125 mg/ Sodium (Chloride) 125 mls @ 0 mls/hr IVCONT .Q0M [facility]; Protocol Magnesium Hydroxide (Milk Of Magnesia 30 Ml Oral.Susp) 30 ml PO DAILY PRN PRN Reason: Constipation Melatonin (Melatonin 3 Mg Tablet) 6 mg PO BEDTIME PRN PRN Reason: Insomnia Metoprolol Tartrate (Metoprolol Tartrate 100 Mg Tablet) 100 mg PO BID [facility]; Protocol Last Admin: 05/07/24 21:21 Dose: 100 mg Documented By: DOT Mirtazapine (Mirtazapine 15 Mg Tablet) 45 mg PO BEDTIME [facility] Last Admin: 05/07/24 21:20 Dose: 45 mg Documented By: DOT Naloxone HCl (Naloxone Hcl 0.4 Mg/Ml Vial) 0.04 mg IVPUSH Q5M PRN PRN Reason: Excessive sedation or RR < 8 Olanzapine (Olanzapine 10 Mg Tablet) 10 mg PO DAILY [facility] Last Admin: 05/08/24 10:27 Dose: 10 mg Documented By: IMELDA Sodium Chloride (0.9 % Sodium Chloride Flush 3 Ml Syringe) 3 ml IVFLUSH QSHIFT [facility] Last Admin: 05/08/24 08:00 Dose: 3 ml Documented By: IMELDA Labs 05/08/24 07:40 05/08/24 07:40 Labs: Laboratory Results - last 24 hr 05/08/24 07:40 MCV 82.2 MCH 28.7 MCHC 34.9 RDW 14.6 Plt Count 232 MPV 10.5 Immature Gran % (Auto) 0.3 Neut % (Auto) 61.5 Lymph % (Auto) 31.1 [place] % (Auto) 5.9 Eos % (Auto) 0.7 Baso % (Auto) 0.5 Lymph # (Auto) 3.2 [place] # (Auto) 0.6 Eos # (Auto) 0.1 Baso # (Auto) 0.1 Abs Immat Gran (auto) 0.03 Absolute Neuts (auto) 6.3 Absolute Nucleated RBC 0.030 H Nucleated RBC % (auto) 0.3 H Anion Gap 13 Estim Creat Clear Calc 107.6 Estimated GFR > 60 Fasting Glucose 110 H Calcium 8.5 D Magnesium 2.0 Total Bilirubin 0.8 AST 47 H ALT 94 H Alkaline Phosphatase 73 Total Protein 6.0 L Albumin 3.5 Assessment and Plan (1) Atrial fibrillation with rapid ventricular response: Status: Acute Plan 53-year-old male with history of atrial fibrillation status post ablation approximately 1 year ago who has been feeling fine without arrhythmias presents today with 4-5 days of rapid heart rate and mild lightheadedness. Emergency evaluation demonstrates atrial fibrillation with a rapid ventricular response 130s to 140s in the absence of chest pain. Patient received 2 doses of IV Lopressor without effect 1. Atrial fibrillation with rapid ventricular response -rate control on Cardizem drip -continue Eliquis as ordered -for santiago today with cardioversion -further recommendations as per Cardiology 2. Depression/anxiety -stable well compensated -continue outpatient therapies Patient will require 2 midnights going forward of inpatient stay for IV Cardizem to maintain heart rate and specialty consultation. This can not be achieved a lesser acute setting Quality Stroke Does the patient have a stroke diagnosis?: No VTE Prior VTE?: No VTE Risk Level:: Medical - moderate - high VTE Device Contraindication: Treatment Not Indicated VTE Drug Contraindication: N/A - Med Ordered
[2024-05-08] MEDS: Amiodarone HCL 200 MG TABLET 400 MG PO ×2 (15:49→20:37)
--- NOTE | 2024-05-08 16:00 | CA_ITS ---
Transesophageal Echocardiogram Patient (Last, First, Middle): Rasheed Edward, Gender: Male Date of : 1970 Age: 53 Procedure Date: 05/08/2024 Procedure Type: Transesophageal Echocardiogram Location: [facility] [place] Height: 172.72 cm Weight: kg Door Framer: Referring MD: Abdi Barone MD Symptoms: Atrial fibrillation Conclusion: ??? There is no evidence of a thrombus in the left atrial appendage. Findings Procedure Information Consent was obtained prior to the procedure. Pre JUDIE oral cavity was checked and revealed no overcrowding. The adult 3D probe was passed with no difficulty. Left Ventricle Normal left ventricular cavity size. The left ventricular systolic function is low normal. Atria There is a mobile atrial septum noted. There is no evidence of a thrombus in the left atrial appendage. There is evidence of a patent foramen ovale with left to right shunting. (by color doppler). Mitral Valve The mitral valve appears normal. There is mild to moderate mitral valve regurgitation. There is no mitral valve stenosis. Tricuspid Valve Normal tricuspid valve structure. There is trace tricuspid valve regurgitation. Great Vessels Small plaque is seen in the arch and descending thoracic aorta. Pericardium/Pleural There is no evidence of pericardial effusion. Prior Study Comparison No significant change compared to prior study dated: 05/07/2024. Updated by Abdi Barone on 11:25 AM with Status of Final Abdi Barone MD electronically signed on 05/10/2024 11:25:24 AM with status of Final
[2024-05-08] MEDS: Mirtazapine 15 MG TABLET 45 MG PO (20:36)
[2024-05-08] MEDS: Metoprolol Tartrate 100 MG TABLET PO (20:37)
[2024-05-08 23:58] LABS: Influenza A PCR NEGATIVE (Negative); Influenza B PCR NEGATIVE (Negative); Resp Syncy Virus RNA Qual PCR NEGATIVE (Negative); SARS COV2 PCR INHOUSE NEGATIVE (Negative)
[2024-05-09] VITALS: BP 142/91; PULSE 81; RESP 18; TEMP 37.6; O2SAT 95
[2024-05-09] MEDS: 0.9 % Sodium Chloride Flush 3 ML SYRINGE IVFLUSH (00:10)
[2024-05-09 04:00] VITALS: BP 138/79; PULSE 76; RESP 18; TEMP 36.9; O2SAT 92
[2024-05-09 07:46] LABS: MANUAL DIFF FLAG NO
[2024-05-09 07:54] LABS: Basophils Absolute Auto 0.1 X10*3/uL (0.0-0.2); Basophils Percent Auto 0.5 % (0-2); Eosinophils Absolute Auto 0.1 X10*3/uL (0.0-0.4); Eosinophils Percent Auto 0.9 % (0-4); Hematocrit 35.2 % (42.0-52.0); Hemoglobin 12.3 g/dl (14.0-18.0); Imm Gran Abs Auto 0.05 X10*3/uL (0.00-0.03); Imm Gran Pct Auto 0.5 % (0.0-0.4); Lymphocytes Percent Auto 31.3 % (20-40); Mean Corpuscular HGB Conc 34.9 g/dl (31.0-36.0); Mean Corpuscular Hemoglobin 28.9 pg (27.0-33.0); Mean Corpuscular Volume 82.6 fL (80.0-98.0); Mean Platelet Volume 10.6 fL (9.4-12.4); Monocytes Absolute Auto 0.6 X10*3/uL (0.1-1.2); Neutrophils Absolute Auto 5.9 x10*3/uL (2.0-8.3); Neutrophils Percent Auto 60.8 % (45-73); Platelet Count 246 X10*3/uL (160-400); Red Blood Count 4.26 X10*6/uL (4.60-5.80); Red Cell Distribution Width 14.6 % (11.0-16.0); White Blood Count 9.7 X10*3/uL (4.8-10.8)
[2024-05-09 08:00] VITALS: BP 155/94; PULSE 93; RESP 18; TEMP 37.1; O2SAT 94
[2024-05-09 08:11] LABS: Alanine Aminotransferase 83 U/L (0-40); Albumin Level 3.4 g/dL (3.5-5.0); Alkaline Phosphatase 77 U/L (39-117); Anion Gap 13 (12-20); Aspartate Amino Transferase 32 U/L (5-37); Bilirubin Total 0.9 mg/dL (0.0-1.0); Blood Urea Nitrogen 14 mg/dL (9-16); Calcium 8.2 mg/dL (8.4-10.2); Carbon Dioxide 21 mmol/L (22-29); Chloride 112 mmol/L (96-108); Estimated Glomerular Filt Rate > 60; Glucose Fasting 105 mg/dL (60-99); Potassium 3.8 mmol/L (3.3-5.1); Sodium 142 mmol/L (135-145); Total Protein 5.7 g/dL (6.5-8.0)
[2024-05-09] MEDS: Amiodarone HCL 200 MG TABLET 400 MG PO (09:08)
[2024-05-09] MEDS: hydrOXYzine HCL 50 MG TABLET PO (09:08)
[2024-05-09] MEDS: Apixaban 5 MG TABLET PO (09:08)
[2024-05-09] MEDS: Metoprolol Tartrate 100 MG TABLET PO (09:08)
[2024-05-09] MEDS: OLANZapine 10 MG TABLET PO (09:08)
--- NOTE | 2024-05-09 09:24 | P.PNCA_ITS ---
Subjective Subjective Date of Service: 05/09/24 Interval history: Seen in follow up. Review of Systems Review of Systems Yes all other systems are reviewed and are negative Constitutional: Reports as per HPI and Reports no additional constitutional complaints Eyes: Reports as per HPI and Denies no additional eye complaints Denies system reviewed and no additional complaints, except as documented and Reports as per HPI Cardiovascular: Reports as per HPI, Reports no additional cardiovascular complaints, Denies acrocyanosis, Denies cool extremities, Denies chest pain, Denies leg edema, Denies lightheadedness, Denies palpitations and Denies dyspnea Respiratory: Reports as per HPI, Denies no additional respiratory complaints and Denies dyspnea Gastrointestinal: Reports as per HPI and Denies no additional gastrointestinal complaints Genitourinary: Reports no additional male genitourinary complaints and Reports as per HPI Musculoskeletal: Reports no additional musculoskeletal complaints and Reports as per HPI Skin/Breast: Reports system reviewed and no additional complaints, except as docu Reports system reviewed and no additional complaints, except as documented and Reports as per HPI Psychiatric: Reports no additional psychiatric complaints and Reports as per HPI Endocrine: Reports no additional endocrine complaints, Reports as per HPI and Denies palpitations Hematologic/Lymphatic: Reports no additional hematologic/lymphatic complaints and Reports as per HPI Allergic/Immunologic: Reports no additional allergic/immunologic complaints and Reports as per HPI Physical Exam Vital Signs: Last Vital Signs Temp 98.8 F 05/09/24 08:00 Pulse 93 05/09/24 08:00 Resp 18 05/09/24 08:00 BP 155/94 H 05/09/24 08:00 Pulse Ox 94 05/09/24 08:00 O2 Del Method Room Air 05/09/24 08:00 O2 Flow Rate 6 05/08/24 15:45 BMI result Body Mass Index 35.7 Const General: comfortable and no acute distress Orientation/consciousness: patient oriented x3 HEENT Other: Unremarkable Head: Yes normal to inspection Neck Neck: Yes normal visual inspection Chest Chest palpation & inspection: normal inspection of the chest Resp Auscultation: clear to auscultation bilaterally Cardio Palpation: normal PMI Heart sounds: S1 normal heart sound present, S2 normal heart sound present, no gallops, no murmurs and no rubs GI Palpation (GI): Soft to palpation Back/Spine/Pelvis Other: unremarkable Skin General skin exam: no rashes or lesions noted Neuro General: patient oriented x3 Extrem General: Yes normal to inspection Psych Mental Status: mental status grossly normal Objective Labs and Meds 05/09/24 06:50 05/09/24 06:50 Lab results: Laboratory Results - last 24 hr 05/08/24 05/09/24 22:50 06:50 WBC 9.7 RBC 4.26 L Hgb 12.3 L Hct 35.2 L MCV 82.6 MCH 28.9 MCHC 34.9 RDW 14.6 Plt Count 246 MPV 10.6 Immature Gran % (Auto) 0.5 H Neut % (Auto) 60.8 Lymph % (Auto) 31.3 [place] % (Auto) 6.0 Eos % (Auto) 0.9 Baso % (Auto) 0.5 Lymph # (Auto) 3.0 [place] # (Auto) 0.6 Eos # (Auto) 0.1 Baso # (Auto) 0.1 Abs Immat Gran (auto) 0.05 H Absolute Neuts (auto) 5.9 Absolute Nucleated RBC 0.000 Nucleated RBC % (auto) 0.0 Sodium 142 Potassium 3.8 Chloride 112 H Carbon Dioxide 21 L Anion Gap 13 BUN 14 Creatinine 0.99 Estim Creat Clear Calc 100.0 Estimated GFR > 60 Fasting Glucose 105 H Calcium 8.2 L Total Bilirubin 0.9 AST 32 ALT 83 H Alkaline Phosphatase 77 Total Protein 5.7 L Albumin 3.4 L Influenza Type A (PCR) NEGATIVE Influenza Type B (PCR) NEGATIVE RSV RNA Qual (PCR) NEGATIVE SARS-CoV-2 RNA (RT-PCR) NEGATIVE Progress Note: A&P Assessment and plan (1) Atrial fibrillation with rapid ventricular response: Status: Acute (2) Cardiomyopathy: Status: Acute Plan s/p JUDIE/CV yesterday. Now, back in normal sinus rhythm. Amiodarone 400 mg b.i.d. for 2 weeks followed by 200 mg daily. Continue metoprolol. Stop aspirin. Continue Eliquis. Outpatient follow-up will be arranged. Time Spent With Patient Time: Total time managing care of this patient today ____ minutes. Progress Note: Quality Stroke Does the patient have a stroke diagnosis?: No Procedures Date of Service Date of Service: 05/09/24
[2024-05-09 09:51] LABS: Adenovirus PCR Not Detected (Not Detect.); Bordetella parapertussis PCR Not Detected (Not Detect.); Bordetella pertussis PCR Not Detected (Not Detect.); Chlamydia pneumoniae PCR Not Detected (Not Detect.); Coronavirus 229E PCR Not Detected (Not Detect.); Coronavirus HKU1 PCR Not Detected (Not Detect.); Coronavirus NL63 PCR Not Detected (Not Detect.); Coronavirus OC43 PCR Not Detected (Not Detect.); Human metapneumovirus PCR Not Detected (Not Detect.); Influenza A PCR Not Detected (Not Detect.); Influenza B PCR Not Detected (Not Detect.); Mycoplasma pneumoniae PCR Not Detected (Not Detect.); Parainfluenza 1 PCR Not Detected (Not Detect.); Parainfluenza 2 PCR Not Detected (Not Detect.); Parainfluenza 3 PCR Not Detected (Not Detect.); Parainfluenza 4 PCR Not Detected (Not Detect.); RSV PCR Not Detected (Not Detect.); Rhino/Enterovirus PCR Not Detected (Not Detect.); SARS-CoV-2 PCR Not Detected (Not Detect.)
--- NOTE | 2024-05-09 10:15 | HO.CARDIVERS ---
Cardioversion Procedure Note Cardioversion Date of Procedure: 05/08/2024 Pre-Op Diagnosis: Atrial fibrillation with rapid ventricular response Post-Op Diagnosis: Sinus rhythm Consent: Informed consent obtained. Procedure: After informed consent was obtained, patient was taken to the operating room. Transesophageal echocardiogram was performed which showed no evidence of left atrial appendage thrombus. Subsequently, 120 joules of synchronized shock was administered through pads in the anteroposterior position. The rhythm converted from atrial fibrillation to sinus rhythm. Complications: None. Impression: Successful cardioversion from atrial fibrillation with rapid rate to sinus rhythm. Recommendations: Amiodarone loading followed by maintenance. Continue metoprolol. Continue Eliquis.
--- NOTE | 2024-05-09 11:29 | P.DS_ITS ---
DS: Providers Provider Date of Service: 05/09/24 Date of admission: 05/07/24 11:43 Date of discharge: 05/09/24 Primary care physician: Nish Amaral PA-C Consults: 05/07/24 11:46 Consult to Cardiology Routine Consulting Provider: [facility] Reason for consultation: Atrial fibrillation with rapid ventricular response Has provider been notified: Yes DS: Diagnosis Discharge Diagnosis (1) Atrial fibrillation with rapid ventricular response: Status: Resolved (2) Cardiomyopathy: Status: Acute DS: Summary Hospital Course Hospital Course: Date of Service: 05/07/24 Chief Complaint: Rapid heartbeat 53-year-old male with history of atrial fibrillation on no anticoagulation presents today with feeling of a rapid heartbeat that started approximately 4-5 days ago. He states his last episode was approximately 1 year ago for which he received a cardioversion and has been fine up until that time. He states that he began feeling these rapid heart rates intermittently and they became persistent. He waited out hoping it would resolve spontaneously however did not. He presents to ER with a ventricular response rate of 130-140. He denies any recent viral illnesses nausea vomiting diarrhea. I will workup negative. In the ER received 2 doses of IV Lopressor and admission was requested 53-year-old male with history of atrial fibrillation status post ablation approximately 1 year ago who has been feeling fine without arrhythmias presented with 4-5 days of rapid heart rate and mild lightheadedness, noted to have atrial fibrillation with rapid ventricular response heart rate in 130s to 140s in the absence of chest pain, patient received 2 doses of IV Lopressor without effect, therefore started on Cardizem drip and admitted to [facility] telemetry unit, seen by tentmaker started on amiodarone loading dose and Eliquis underwent JUDIE cardioversion and converted to normal sinus rhythm , all symptoms resolved therefore he is being discharged home on amiodarone loading dose, Eliquis and recommended to continue metoprolol as before, aspirin discontinued recommend outpatient follow-up with Cardiology In regard to Depression/anxiety recommend to continue home medications Time Attestation Discharge Coordination Time (in mins): 36 Quality: Safe Use of Opioids Does Pt have an Active Cancer Diagnosis on the Problem List?: No Quality: Stroke Does the patient have a stroke diagnosis?: No Physical Exam Vital Signs: Vital Signs: Last Vital Signs Temp 98.8 F 05/09/24 08:00 Pulse 93 05/09/24 08:00 Resp 18 05/09/24 08:00 BP 155/94 H 05/09/24 08:00 Pulse Ox 94 05/09/24 08:00 O2 Del Method Room Air 05/09/24 08:00 O2 Flow Rate 6 05/08/24 15:45 BMI result Body Mass Index 35.7 Const: Other: General awake alert x3, in no acute distress. Neck no JVD. CVS regular rate rhythm, Respiratory lungs clear to auscultation, no respiratory distress, no wheeze, no rhonchi. Gastrointestinal abdomen soft, nontender, bowel sounds audible. Extremities no edema. Neuro non focal Skin no rash Psych appropriate affect DS: Data Data Completed and Pending Labs on day of discharge: Laboratory Results - last 24 hr 05/08/24 05/08/24 05/09/24 22:44 22:50 06:50 WBC 9.7 RBC 4.26 L Hgb 12.3 L Hct 35.2 L MCV 82.6 MCH 28.9 MCHC 34.9 RDW 14.6 Plt Count 246 MPV 10.6 Immature Gran % (Auto) 0.5 H Neut % (Auto) 60.8 Lymph % (Auto) 31.3 [place] % (Auto) 6.0 Eos % (Auto) 0.9 Baso % (Auto) 0.5 Lymph # (Auto) 3.0 [place] # (Auto) 0.6 Eos # (Auto) 0.1 Baso # (Auto) 0.1 Abs Immat Gran (auto) 0.05 H Absolute Neuts (auto) 5.9 Absolute Nucleated RBC 0.000 Nucleated RBC % (auto) 0.0 Sodium 142 Potassium 3.8 Chloride 112 H Carbon Dioxide 21 L Anion Gap 13 BUN 14 Creatinine 0.99 Estim Creat Clear Calc 100.0 Estimated GFR > 60 Fasting Glucose 105 H Calcium 8.2 L Total Bilirubin 0.9 AST 32 ALT 83 H Alkaline Phosphatase 77 Total Protein 5.7 L Albumin 3.4 L Respiratory Panel Mario See Note Adenovirus (Rapid PCR) Not Detected B.pert (TEM-PCR) Not Detected B.parapertussis DNA PCR Not Detected C. pneumoniae DNA (PCR) Not Detected Coronavirus OC43 (PCR) Not Detected Coronavirus HKU1 (PCR) Not Detected Coronavirus 229E (PCR) Not Detected Coronavirus NL63 (PCR) Not Detected Human Metapneumovir PCR Not Detected Influenza A (RT-PCR) Not Detected Influenza Type A (PCR) NEGATIVE Influenza B (RT-PCR) Not Detected Influenza Type B (PCR) NEGATIVE M. pneumoniae (PCR) Not Detected Parainfluenza 1 (PCR) Not Detected Parainfluenza 2 (PCR) Not Detected Parainfluenza 3 (PCR) Not Detected Parainfluenza 4 (PCR) Not Detected RSV (PCR) Not Detected RSV RNA Qual (PCR) NEGATIVE Entero/Rhino (PCR) Not Detected SARS-CoV-2 RNA (RT-PCR) Not Detected NEGATIVE Discharge Plan Discharge Anticipated Discharge Date/Time: 05/09/24 11:21 Patient Disposition: Home, Self-Care Discharge Diagnosis: Atrial fibrillation with RVR Referrals: Nish Amaral PA-C [Primary Care Provider] - 1 Week Discharge Medications: New Eliquis 5 mg Tablet 5 mg PO BID Qty: 60 0RF amiodarone 200 mg Tablet 400 mg PO BID Qty: 100 0RF Rx Instructions: Take amiodarone 200 mg 2 tablets (400mg) twice daily times 14 days then 200 mg 1 tablet daily Continued metoprolol tartrate 100 mg tablet 100 mg PO BID 90 Days Qty: 180 1RF mirtazapine 45 mg tablet 45 mg PO BEDTIME olanzapine 10 mg tablet 10 mg PO DAILY hydroxyzine HCl 50 mg tablet 50 mg PO TID Discontinued aspirin [Adult Aspirin Regimen] 81 mg tablet,delayed release (DR/EC) 81 mg PO DAILY Qty: 90 2RF ibuprofen 800 mg tablet 800 mg PO Q8H PRN (Reason: Pain) Discharge Orders: Discharge Order (Routine); Ordered 05/09/24 Ordered By: Maritza Baker Diet: Advance to usual diet Activity on Discharge: As tolerated Stand Alone Forms: Patient Portal Discharge page Print Language: Greenlandic Care Plan Goals: Atrial fibrillation with RVR status post cardioversion Take amiodarone 200 mg 2 tablets twice daily for 14 days counting today Then take amiodarone 200 mg 1 tablet daily Eliquis 1 tablet twice daily Continue metoprolol as before Discontinue aspirin Minimize use Motrin Health Concerns: Sleep apnea Plan of Treatment: Outpatient follow-up with Dr. Barone call for appointment in 2-3 weeks Assessment: As above Discharge Date/Time: 05/09/24 13:18
--- NOTE | 2024-05-09 11:39 | HO.POSTANES ---
Post Anesthesia Evaluation Post Anesthesia Evaluation Date of Service: 05/09/24 Vital Signs: Vital Signs Temp Pulse Resp BP Pulse Ox O2 Del Method 05/09/24 08:00 98.8 F 93 18 155/94 H 94 Room Air 05/09/24 04:00 98.5 F 76 18 138/79 92 Room Air 05/09/24 00:00 99.7 F 81 18 142/91 H 95 Room Air Anesthesia: TIVA Mental Status: Awake Pain Control: Satisfactory Nausea/Vomiting: None Hydration: Adequate Anesthesia-Related Issues: No Anes. Related Issues
[2024-05-09 12:00] VITALS: BP 134/88; PULSE 73; RESP 20; TEMP 36.7; O2SAT 94
--- NOTE | 2024-05-09 12:06 | MHC.CM.PN ---
PT WILL DC HOME TODAY WITH NO SERVICES VIA PRIVATE TRANSPORT
== END 2024-05-09 13:18 | disposition home or self-care (01) | DRG 201 ==
LOC: HO.ED 11:19 → HO.EDOVER 12:01 → HO.IMC 19:17
PROVIDERS: Internal Medicine; Admitting Provider Hospitalist; Emergency Provider Emergency Medicine Emergency Medical Services; PCP Physician Assistant; Visit Provider Hospitalist
PROC: 5A2204Z Restoration of Cardiac Rhythm, Single (ICD-10-PCS; CPT 93312; principal; 2024-05-08 14:30)
PROC: 5A2204Z Restoration of Cardiac Rhythm, Single (ICD-10-PCS; 2024-05-08 14:30)
DX: I48.19 Other persistent atrial fibrillation (principal); I42.9 Cardiomyopathy, unspecified; F32.A Depression, unspecified; F41.9 Anxiety disorder, unspecified; Z20.822 Contact with and (suspected) exposure to COVID-19; Z79.899 Other long term (current) drug therapy
CPT/HCPCS: 0241U; 36415; 80053; 83735; 84443; 84484; 85025; 85652; 85730; 87633; 92960; 93005; 93306; 99285; J1650; J2003; J2704; Q9957

== ENCOUNTER 2024-05-07 11:43 | Outpatient (BNV) | payer OTHER, SELFPAY | END 2024-05-08 16:00 | PROVIDERS: Admitting Provider Hospitalist; Emergency Provider Emergency Medicine Emergency Medical Services; PCP Physician Assistant; Visit Provider Internal Medicine | DX: Q21.12 Patent foramen ovale (principal); I34.0 Nonrheumatic mitral (valve) insufficiency; I48.91 Unspecified atrial fibrillation | CPT/HCPCS: 76376; 93010; 93315; 93320; 93325 ==

== ENCOUNTER → 2024-05-07 11:43 | Outpatient (BNV) | payer OTHER, SELFPAY | PROVIDERS: Admitting Provider Hospitalist; Emergency Provider Emergency Medicine Emergency Medical Services; PCP Physician Assistant; Visit Provider Internal Medicine | DX: I48.91 Unspecified atrial fibrillation (principal); I42.9 Cardiomyopathy, unspecified | CPT/HCPCS: 92960; 99223; 99233 ==

== ENCOUNTER → 2024-05-07 11:43 | Outpatient (BNV) | payer OTHER, SELFPAY | PROVIDERS: Admitting Provider Hospitalist; Emergency Provider Emergency Medicine Emergency Medical Services; PCP Physician Assistant; Visit Provider Hospitalist | DX: I48.91 Unspecified atrial fibrillation (principal); I42.9 Cardiomyopathy, unspecified; G47.30 Sleep apnea, unspecified | CPT/HCPCS: 99222; 99232; 99239 ==

== ENCOUNTER 2024-05-18 12:36 | Outpatient (AMB) | payer OTHER, SELFPAY ==
--- NOTE | 2024-05-18 12:44 | MHC.PC.OV ---
Vital Signs 05/18/24 12:53 05/18/24 13:51 Height 5 ft 7 in Weight 224 lb BMI 35.1 BP 160/100 H 148/100 H Blood Pressure Location Lt brachial Position Sitting Pulse 53 Pulse Source Pulse Oximeter Pulse Oximetry (%) 97 Oxygen Delivery Method Room Air [place] [facility] [place] Director Regulatory Agency Required: No Accompanied by: Self / Same As Patient Allergies No Known Allergies Allergy (Verified 05/18/24 13:05) Medication List - Last Reconciled 05/18/24 by Nish Amaral PA-C amiodarone 400 mg (2 x 200 mg) PO BID apixaban (Eliquis) 5 mg PO BID hydroxyzine HCl 50 mg PO TID metoprolol tartrate 100 mg PO BID 90 days mirtazapine 45 mg PO BEDTIME olanzapine 10 mg PO DAILY Tobacco use date assessed: 05/07/24 Dental Screening Dental Screen Date: 05/07/24 [place] [facility] [place] HPI Details Rasheed is a 53-year-old male here today for hospital discharge follow-up. He presented to the ER after seeing me in the primary care office a planning of lightheadedness and rapid heart rates. He was found to have AFib with rapid ventricular response and was started on IV Lopressor without effect. He was given a Cardizem drip and admitted to [facility] telemetry. He was seen by Cardiology started amiodarone and Eliquis.. He underwent a transesophageal cardioversion and converted to normal sinus rhythm. He reports currently feeling much better. He continues on amiodarone, metoprolol and Eliquis. He does not note any overt signs of bleeding. We do see a elevated blood pressure in the office. He does not monitor his blood pressure at home. Advised to start home blood pressure monitoring. We did discuss perhaps starting lisinopril for better blood pressure control. Lumbar spine arthritis: He reports he has lower back pain flares that are pretty significant. He is unable to take NSAIDs at this point as he is on anticoagulation for his AFib. He has used Tylenol though has not been significantly helpful. He is willing to see pain management and start physical therapy as well. [facility] Medical History Ruptured epidermal cyst History of cardioversion Sleep apnea Subcutaneous mass Arrhythmia Surgical History History of excision of epidermal inclusion cyst (~04/25/23) Status post excision of lipoma Family History Father CVD (cardiovascular disease) Mother Multiple sclerosis Social History Household Members: Spouse Housing: House Are you a primary lpn care manager to a significant other at home: No Do you presently have visiting nurse or other home services: No Alcohol intake: current Alcohol intake frequency: holidays/special occasions only Alcohol type: beer Patient Tobacco Use Status: Never used Tobacco e-Cigarette/Vaping Use: Never Used Second Hand Smoke Exposure: No Substance Use Type: Marijuana service: No Current occupational status: employed 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 Sidney Yun, Aimee Lay, Scar Antonio and colleagues, with an educational gaudencio from [employer]. Review of Systems Const Denies headache(s) Eyes Denies loss of vision ENT Denies vertigo, Denies dizziness, Denies headache(s) and Denies sore throat Card Denies chest pain, Denies leg edema and Denies lightheadedness Resp Denies cough, Denies hemoptysis and Denies wheezing GI Denies abdominal pain, Denies melena, Denies constipation, Denies diarrhea and Denies vomiting Denies dysuria, Denies urinary frequency and Denies urinary urgency Musc Denies arthralgias, Denies joint swelling, Denies numbness and Denies tingling Neuro Denies Abnormal speech present, Denies behavioral changes, Denies vertigo, Denies dizziness, Denies headache(s), Denies loss of vision, Denies memory loss, Denies numbness and Denies tingling Psych Denies anxiety, Denies behavioral changes, Denies depression, Denies memory loss and Denies panic attacks Bhavin/Lymph Denies easy bleeding and Denies easy bruising Aller/Immun Denies wheezing Physical exam (Primary Care) Vital Signs: Last Vital Signs Pulse 53 05/18/24 12:53 BP 160/100 H 05/18/24 12:53 Pulse Ox 97 05/18/24 12:53 Oxygen Delivery Method Room Air 05/18/24 12:53 BMI result Body Mass Index 35.1 Tobacco/Smoking Status: Tobacco use Status Tobacco use date assessed 05/07/24 05/18/24 12:44 Patient Tobacco Use Status Never used Tobacco 05/18/24 12:44 e-Cigarette/Vaping Use Never Used 05/18/24 12:44 Thrive Assessment: Date of Thrive Assessment Date Thrive assessed 05/08/24 05/18/24 12:44 Const General: healthy appearing, no acute distress, alert and awake Nutritional Appearance: well nourished Orientation/consciousness: oriented to person, oriented to place and oriented to time HENMT Ears: TM's normal bilaterally General nose exam: Normal nasal mucous membranes and turbinates present Eyes Conjunctivae: conjunctivae normal Sclerae: sclerae normal Pupils: Equal, round and reactive pupils present Neck Neck: Yes no lymphadenopathy and Yes no JVD Thyroid: Thyroid normal Carotids: no bruits Resp Effort & Inspection: normal respiratory effort and not tachypneic Auscultation: no crackles, no rales, no rhonchi and no wheezes Cardio Rate: regular rate Rhythm: regular rhythm Heart sounds: no murmurs and normal S1 and S2 GI Palpation (GI): Soft to palpation, nontender, no hepatomegaly and no splenomegaly Auscultation: normal bowel sounds Skin General skin exam: no rashes or lesions noted and dry skin Neuro General: oriented to person, oriented to place and oriented to time Cranial nerves: Yes Equal, round and reactive pupils present Speech: No Abnormal speech present Gait exam (Neuro): Normal gait present Motor exam (neuro): no tremor noted Extrem Right upper extremity: full ROM Left upper extremity: full ROM Right lower extremity: full ROM; no edema Left lower extremity: full ROM; no edema Psych Mental Status: mental status grossly normal Speech and movement: Normal speech and movement present Affect: normal affect Attitude: cooperative Thought process: Normal thought process present Office Procedures Flu Questionnaire Does the patient have a severe egg allergy?: No Immunizations Fluarix Triv [id number] (PF) 45 mcg (15 mcg x 3)/0.5 mL IM syringe Performing Provider: Nish Amaral PA-C [place] [facility] [place] [facility] Documented (not given) by: FOX Cummings on 05/18/24 12:54 Reason Not Given: Patient Refused Coding Level of Care Code TCM Mod MDM <= 14 Days Diagnoses Hospital discharge follow-up Z09 Paroxysmal atrial fibrillation I48.0 Atrial fibrillation type: paroxysmal Lumbar disc disease M51.9 Primary hypertension I10 Hypertension type: primary hypertension Assessment & Plan Assessment & Plan (1) Hospital discharge follow-up: Code(s): Z09 - Encounter for follow-up examination after completed treatment for conditions other than malignant neoplasm Category: Medical Plan: As per HPI (2) Atrial fibrillation: Code(s): I48.91 - Unspecified atrial fibrillation Category: Medical Qualifiers: Atrial fibrillation type: paroxysmal Qualified Code(s): I48.0 - Paroxysmal atrial fibrillation Plan: Has been HPI (3) Lumbar disc disease: Code(s): M51.9 - Unspecified thoracic, thoracolumbar and lumbosacral intervertebral disc disorder Category: Medical Plan: Patient reports having lower lumbar spine pain flares that are pretty significant. He reports he is incapacitated for 2-3 days when his back pain flares. He is interested in seeing pain management and physical therapy. Will supply patient with a muscle relaxer to use on an as needed basis for his back pain. (4) HTN (hypertension): Code(s): I10 - Essential (primary) hypertension Category: Medical Qualifiers: Hypertension type: primary hypertension Qualified Code(s): I10 - Essential (primary) hypertension Plan: Patient's blood pressure elevated today in office. He continues on metoprolol 100 b.i.d.. Advised to start blood pressure monitoring at home and if consistently above 140/90 will consider starting additional antihypertensive medication for blood pressure control. Orders: Orders Influenza [id number] Immunization Today Z23 - Encounter for immunization Comprehensive Met. Panel Today I48.91 - Unspecified atrial fibrillation PT Evaluation and Treatment Today M51.9 - Unspecified thoracic, thoracolumbar and lumbosacral intervertebral disc disorder Referrals Pain Management Referral M51.9 - Unspecified thoracic, thoracolumbar and lumbosacral intervertebral disc disorder Medications: New cyclobenzaprine 10 mg PO BEDTIME PRN 14 tabs 0RF muscle spasm 14 days M51.9 - Unspecified thoracic, thoracolumbar and lumbosacral intervertebral disc disorder blood pressure monitor As directed 1 ea 0RF I10 - Essential (primary) hypertension Refilled apixaban (Eliquis) 5 mg PO BID 60 tabs 6RF I48.0 - Paroxysmal atrial fibrillation
[2024-05-18 12:53] VITALS: BP 160/100; PULSE 53; O2SAT 97; BMI 35.1
[2024-05-18 13:51] VITALS: BP 148/100
== END 2024-05-18 13:19 | disposition home or self-care (01) ==
PROVIDERS: PCP Physician Assistant; Visit Provider Physician Assistant
DX: I48.0 Paroxysmal atrial fibrillation (principal); M51.9 Unspecified thoracic, thoracolumbar and lumbosacral intervertebral disc disorder; I10 Essential (primary) hypertension; Z09 Encounter for follow-up examination after completed treatment for conditions other than malignant neoplasm

== ENCOUNTER → 2024-05-18 12:36 | Outpatient (BNVA) | payer OTHER, SELFPAY | PROVIDERS: PCP Physician Assistant; Visit Provider Physician Assistant | DX: Z09 Encounter for follow-up examination after completed treatment for conditions other than malignant neoplasm (principal); I48.0 Paroxysmal atrial fibrillation; I10 Essential (primary) hypertension; M51.9 Unspecified thoracic, thoracolumbar and lumbosacral intervertebral disc disorder | CPT/HCPCS: 99212 ==

== ENCOUNTER 2024-06-08 14:33 | Outpatient (AMB) | payer OTHER, SELFPAY ==
--- NOTE | 2024-06-08 14:38 | A.OFFVIS_ITS ---
Vital Signs 06/08/24 14:41 Height 5 ft 7 in Weight 226 lb BMI 35.4 BP 140/83 H Blood Pressure Location Lt brachial Position Sitting Respiration 16 Pulse 72 Pulse Source Pulse Oximeter Pulse Oximetry (%) 97 Oxygen Delivery Method Room Air Intake Visit Reasons: Intervertebral Disc Order Allergies No Known Allergies Allergy (Verified 06/08/24 14:42) Medication List - Last Reconciled 06/08/24 by Danii Loredo LPN amiodarone 400 mg (2 x 200 mg) PO BID apixaban (Eliquis) 5 mg PO BID blood pressure monitor As directed cyclobenzaprine 10 mg PO BEDTIME PRN 14 days hydroxyzine HCl 50 mg PO TID metoprolol tartrate 100 mg PO BID 90 days mirtazapine 45 mg PO BEDTIME olanzapine 10 mg PO DAILY HPI Comments Details: Rasheed is very pleasant 53 years old gentleman who presents in my office with complains on lower back pain without radiation into the extremities. He reports that this pain started about a year ago. He was told that his pain is secondary to arthritis. He reports his pain today 08/17. However he reports that from time to time he has exacerbation of his pain all the way up to 04/16. Because of his pain he can not sleep normally, he can not do activities of daily living, he can take care of himself, he can not function normally. He is currently unemployed. He is self mobile and reports that weather changes aggravate his pain and oral medication makes his pain better. He reports that pain is worse in in the morning and less severe in the afternoon. In terms of tissue damage he describes his pain as pulsing, pounding, hot burning, dull sensation. In 2020 he went for x-ray of the lumbar spine which demonstrated small osteophytes otherwise x-ray was normal. He never had any physical therapy to treat his pain Nevro had any injections to treat his pain. He is taking Tylenol Arthritis and he reports good pain relief with this medication. His past medical history significant for atrial fibrillation and he denies any surgical history. He admits drinking 5 beers a week denies smoking cigarettes drinks soda and takes cannabis several joints a day. [facility] Medical History Ruptured epidermal cyst History of cardioversion Sleep apnea Subcutaneous mass Arrhythmia Surgical History History of excision of epidermal inclusion cyst (~04/25/23) Status post excision of lipoma Family History Father CVD (cardiovascular disease) Mother Multiple sclerosis Social History Household Members: Spouse Housing: House Are you a primary child day care provider to a significant other at home: No Do you presently have visiting nurse or other home services: No Alcohol intake: current Alcohol intake frequency: holidays/special occasions o nly Alcohol type: beer Patient Tobacco Use Status: Never used Tobacco e-Cigarette/Vaping Use: Never Used Second Hand Smoke Exposure: No Substance Use Type: Marijuana service: No Current occupational status: employed 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 Current occupational exposures/hazards: No Cognitive needs: No Hearing needs: No Vision needs: No Review of Systems Const Reports no additional complaints ENT Reports Normal hearing present Card Reports as per HPI Resp Reports no additional complaints GI Reports no additional complaints Reports no additional complaints Musc Reports as per HPI Neuro Reports no additional complaints, Reports Normal hearing present, Denies Abnormal speech present, Denies confusion and Denies Sensory deficit (Neuro) Psych Reports no additional complaints and Denies confusion Endo Reports no additional complaints Physical Exam Vital Signs: Last Vital Signs Pulse 72 06/08/24 14:41 Resp 16 06/08/24 14:41 BP 140/83 H 06/08/24 14:41 Pulse Ox 97 06/08/24 14:41 Oxygen Delivery Method Room Air 06/08/24 14:41 BMI result Body Mass Index 35.4 Const General: no acute distress; No confusion Orientation/consciousness: patient oriented x3 and No confusion Eyes General: appearance normal, both eyes and all related structures Pupils: Equal, round and reactive pupils present EOM: EOMs intact bilaterally Neck Neck: Yes full ROM Chest Chest palpation & inspection: normal inspection of the chest Resp Effort & Inspection: normal respiratory effort, able to speak in complete sentences, normal respiratory pattern, no audible wheezes and no cough Cardio Jugular venous distension: no JVD GI Inspection: Yes normal to inspection Back/Spine/Pelvis Other: Flexing forward and flexing backwards both aggravate his pain there is tenderness on palpation in paraspinal spinal region lumbar spine. Neuro General: patient oriented x3, gait normal and No confusion Cranial nerves: Yes CN's II-XII intact bilaterally, Yes Equal, round and reactive pupils present, Yes Normal hearing present and Yes Ability to bilaterally elevate shoulders present Speech: No Abnormal speech present Gait exam (Neuro): Normal gait present Motor exam (neuro): 5/5 motor strength present throughout Sensory Exam: No Sensory deficit (Neuro) Extrem General: No pedal edema Psych Speech and movement: Normal speech and movement present Affect: normal affect Attitude: cooperative Thought process: Normal thought process present Thought content: Normal thought content present Insight: Good insight present (Psych) Judgement: Good judgement present (Psych) Assessment & Plan Assessment & Plan (1) Low back pain associated with a spinal disorder other than radiculopathy or spinal stenosis: Code(s): M54.50 - Low back pain, unspecified Category: Medical Plan Rasheed never went for physical therapy in the past we decided that I will send him for physical therapy, I explained to him home exercise program. I also will start him on muscle relaxants baclofen 5 mg p.o. b.i.d. as the medication unlikely interfering with his atrial fibrillation. I will see this patient after he completes physical therapy. Most likely we will go through some images if no effect of physical therapy will be demonstrated. Orders: Orders PT Evaluation and Treatment 06/08/24 M54.50 - Low back pain, unspecified Medications: New baclofen 5 mg PO BID 30 days 60 tabs 1RF Coding Level of Care Code New Pt Level 3 (77635) Diagnoses Low back pain associated with a spinal disorder other than radiculopathy or spinal stenosis M54.50
[2024-06-08 14:41] VITALS: BP 140/83; PULSE 72; RESP 16; O2SAT 97; BMI 35.4
== END 2024-06-08 14:59 | disposition home or self-care (01) ==
PROVIDERS: PCP Physician Assistant; Referring Provider Physician Assistant; Visit Provider Anesthesiology
DX: M54.50 Low back pain, unspecified (principal)
CPT/HCPCS: 99203

== ENCOUNTER → 2024-06-08 14:33 | Outpatient (BNVA) | payer OTHER, SELFPAY | PROVIDERS: PCP Physician Assistant; Referring Provider Physician Assistant; Visit Provider Anesthesiology | DX: M54.50 Low back pain, unspecified (principal) | CPT/HCPCS: 99202 ==

== ENCOUNTER 2024-07-20 14:47 | Outpatient (AMB) | payer OTHER, SELFPAY ==
[2024-07-20 14:59] VITALS: PULSE 63; RESP 15; O2SAT 97; BMI 35.4
--- NOTE | 2024-07-20 14:59 | A.OFFVIS_ITS ---
Vital Signs 07/20/24 14:59 Height 5 ft 7 in Weight 226 lb BMI 35.4 Blood Pressure Location Lt brachial Position Sitting Respiration 15 Pulse 63 Pulse Source Pulse Oximeter Pulse Oximetry (%) 97 Oxygen Delivery Method Room Air Intake Visit Reasons: 6 weeks FU after PT Intake Note: Pt's BP grossly elevated - taken manually Allergies No Known Allergies Allergy (Verified 07/20/24 15:00) Medication List - Last Reconciled 07/20/24 by Danii Loredo LPN amiodarone 200 mg PO DAILY 90 days apixaban (Eliquis) 5 mg PO BID baclofen 5 mg PO BID 30 days blood pressure monitor As directed cyclobenzaprine 10 mg PO BEDTIME PRN 14 days hydroxyzine HCl 50 mg PO TID metoprolol tartrate 100 mg PO BID 90 days mirtazapine 45 mg PO BEDTIME olanzapine 10 mg PO DAILY HPI Comments Details: Rasheed is back in my office with complains on lower back pain. He was sent for physical therapy. He did not completed physical therapy. When I confronted patient today with the question why he did not complete physical therapy he stated that his pain is 0/10 today, he stated that his pain is usually intermittent and he does not need any treatment at this time. At the same time his blood pressure today 160/104 and he was recommended to schedule appointment with primary care physician as soon as possible. He expressed understanding. Prior: complains on lower back pain without radiation into the extremities. Pain started a year ago. He was told that his pain is secondary to arthritis. He reports his pain today 2/10. However he reports that from time to time he has exacerbation of his pain all the way up to 10/10. He never had any physical therapy to treat his pain Nevro had any injections to treat his pain. He is taking Tylenol Arthritis and he reports good pain relief with this medication. His past medical history significant for atrial fibrillation and he denies any surgical history. He admits drinking 5 beers a week denies smoking cigarettes drinks soda and takes cannabis several joints a day. [facility] Medical History Ruptured epidermal cyst History of cardioversion Sleep apnea Subcutaneous mass Arrhythmia Surgical History History of excision of epidermal inclusion cyst (~04/25/23) Status post excision of lipoma Family History Father CVD (cardiovascular disease) Mother Multiple sclerosis Social History Household Members: Spouse Housing: House Are you a primary career services manager to a significant other at home: No Do you presently have visiting nurse or other home services: No Alcohol intake: current Alcohol intake frequency: holidays/special occasions only Alcohol type: beer Patient Tobacco Use Status: Never used Tobacco e-Cigarette/Vaping Use: Never Used Second Hand Smoke Exposure: No Substance Use Type: Marijuana service: No Current occupational status: employed 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 Current occupational exposures/hazards: No Cognitive needs: No Hearing needs: No Vision needs: No Review of Systems Const All systems reviewed & are unremarkable except as noted in HPI and below ENT Reports Normal hearing present Neuro Reports Normal hearing present, Denies Abnormal speech present, Denies confusion and Denies Sensory deficit (Neuro) Psych Denies confusion Physical Exam Vital Signs: Last Vital Signs Pulse 63 07/20/24 14:59 Resp 15 07/20/24 14:59 Pulse Ox 97 07/20/24 14:59 Oxygen Delivery Method Room Air 07/20/24 14:59 BMI result Body Mass Index 35.4 Const General: no acute distress; No confusion Orientation/consciousness: patient oriented x3 and No confusion Eyes General: appearance normal, both eyes and all related structures Pupils: Equal, round and reactive pupils present EOM: EOMs intact bilaterally Neck Neck: Yes full ROM Chest Chest palpation & inspection: normal inspection of the chest Resp Effort & Inspection: normal respiratory effort, able to speak in complete sentences, normal respiratory pattern, no audible wheezes and no cough Cardio Jugular venous distension: no JVD GI Inspection: Yes normal to inspection Back/Spine/Pelvis Other: Flexing forward and flexing backwards both aggravate his pain there is tenderness on palpation in paraspinal spinal region lumbar spine. Neuro General: patient oriented x3, gait normal and No confusion Cranial nerves: Yes CN's II-XII intact bilaterally, Yes Equal, round and react mario pupils present, Yes Normal hearing present and Yes Ability to bilaterally elevate shoulders present Speech: No Abnormal speech present Gait exam (Neuro): Normal gait present Motor exam (neuro): 5/5 motor strength present throughout Sensory Exam: No Sensory deficit (Neuro) Extrem General: No pedal edema Psych Speech and movement: Normal speech and movement present Affect: normal affect Attitude: cooperative Thought process: Normal thought process present Thought content: Normal thought content present Insight: Good insight present (Psych) Judgement: Good judgement present (Psych) Assessment & Plan Assessment & Plan (1) Low back pain associated with a spinal disorder other than radiculopathy or spinal stenosis: Code(s): M54.50 - Low back pain, unspecified Category: Medical Plan Rasheed never went for physical therapy even though he was scheduled to go for this mode of treatment. He stated today that his pain is non-existent. I recommended him to consider treatment with us only if he has constant chronic pain. If he will come back we will send him again for physical therapy. At the same time his blood pressure is very high today 160/104 he is recommended to seek appointment with primary care physician estella. He expressed understanding. Coding Level of Care Code Est Pt Level 3 (74872) Diagnoses Low back pain associated with a spinal disorder other than radiculopathy or sp inal stenosis M54.50
== END 2024-07-20 15:10 | disposition home or self-care (01) ==
PROVIDERS: PCP Physician Assistant; Visit Provider Anesthesiology
DX: M54.50 Low back pain, unspecified (principal)
CPT/HCPCS: 99213

== ENCOUNTER → 2024-07-20 14:47 | Outpatient (BNVA) | payer OTHER, SELFPAY | PROVIDERS: PCP Physician Assistant; Visit Provider Anesthesiology | DX: M54.50 Low back pain, unspecified (principal) | CPT/HCPCS: 99212 ==

== ENCOUNTER 2024-09-29 15:34 | Outpatient (AMB) | payer OTHER, SELFPAY ==
[2024-09-29 15:48] VITALS: BP 152/102; PULSE 76; TEMP 36.3; O2SAT 97; BMI 34.7
--- NOTE | 2024-09-29 15:48 | MHC.PC.OV ---
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 Required: No Accompanied by: Self / Same As Patient Allergies No Known Allergies Allergy (Verified 09/29/24 16:27) Medication List - Last Reconciled 09/29/24 by Nish Amaral PA-C amiodarone 200 mg PO DAILY 90 days apixaban (Eliquis) 5 mg PO BID baclofen 5 mg PO BID 30 days blood pressure monitor As directed cyclobenzaprine 10 mg PO BEDTIME PRN 14 days hydroxyzine HCl 50 mg PO TID metoprolol tartrate 100 mg PO BID 90 days mirtazapine 45 mg PO BEDTIME olanzapine 10 mg PO DAILY Tobacco use date assessed: 09/29/24 Dental Screening Dental Screen Date: 09/29/24 Did you have a dental visit in the last 12 months?: Yes Did you have a dental problem in the last 6 months where you did not have access to dental care?: No Was dental information given to patient?: Patient has dentist HPI Dizzines Faint HPI Details The patient is a 53-year-old male presenting with concerns regarding medication side effects and management of atrial fibrillation and associated episodes of syncope. He reports a history of atrial fibrillation and prior hospital admissions requiring cardioversion due to it. Early drug therapy adjustments, specifically with amiodarone, led to syncope episodes attributed to incorrect dosage intake. Lightheadedness and dizziness were more frequent before medication adjustments. Unfortunately has not had any outpatient cardiology follow-up. 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 Essential lab work results from May confirmed stable renal and hepatic functions. Psychiatrically, he has a bipolar disorder and intermittent explosive disorder history impacting his stress and body weight management. Weight concerns have driven him to modify psychiatric medication intake, impacting compliance, although he continues usage of mirtazapine and hydroxyzine for psychological stability. [facility] Medical History Ruptured epidermal cyst History of cardioversion Sleep apnea Subcutaneous mass Arrhythmia Surgical History History of excision of epidermal inclusion cyst (~04/25/23) Status post excision of lipoma Family History Father CVD (cardiovascular disease) Mother Multiple sclerosis Social History Household Members: Spouse Housing: House Are you a primary hearing care practitioner to a significant other at home: No Do you presently have visiting nurse or other home services: No Alcohol intake: current Alcohol intake frequency: holidays/special occasions only Alcohol type: beer Patient Tobacco Use Status: Never used Tobacco e-Cigarette/Vaping Use: Never Used Second Hand Smoke Exposure: No Substance Use Type: Marijuana service: No Current occupational status: employed 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 1. Little interest or pleasure in doing things: not at all 2. Feeling down, depressed, or hopeless: not at all 3. Trouble falling or staying asleep, or sleeping too much: not at all 4. Feeling tired or having little energy: not at all 5. Poor appetite or overeating: not at all 6. Feeling bad about yourself - or that you are a failure or have let yourself or your family down: not at all 7. Trouble concentrating on things, such as reading the newspaper or watching television: not at all 8. Moving or speaking so slowly that other people could have noticed. Or the opposite - being so fidgety or restless that you have been moving around a lot more than usual: not at all 9. Thoughts that you would be better off or of hurting yourself in some way: not at all Total score: 0 Depression Screening Interpretation: Negative Depression Screening Done: Yes 47153 - PHQ-9 Billing: Yes Source: Developed by Drs. Sidney Yun, Aimee Lay, Scar Antonio and colleagues, with an educational gaudencio from [employer]. Thrive Questionnaire Date Thrive assessed: 09/29/24 I am a: Patient What is your living situation today?: I have a steady place to live Within the past 12 months, did the food you bought not last and you didn't have the money to get more?: Never true Within the past 12 months, did you worry whether your food would run out before you got money to buy more?: Never true Do you have trouble paying for medicines?: No Do you have trouble getting transportation to medical appointments?: No Do you have trouble paying your heating and electricity bill?: No Do you have trouble taking care of your child, family member or friend?: No Do you have trouble with day-to-day activities such as bathing, preparing meals, shopping, managing finances, etc.?: No Are you currently unemployed and looking for a job?: No Are you interested in more education?: No Please select the resources that you would like help with: None Currently or been in a relationship where the following occur: No concerns reported THRIVE Score: 0 AUDIT C Alcohol Use Questionnaire (AUDIT-C) 1. How often do you have a drink containing alcohol?: 2-4 times a month 2. How many drinks containing alcohol do you have on a typical day when you are drinking?: 1 or 2 3. How often do you have six or more drinks on one occasion?: Monthly Total Score: 4 LU-7 AMB Questionnaire LU-7 Date LU - 7 assessed: 09/29/24 Feeling nervous, anxious, or on edge: 0 = Not at all Not being able to stop or control worryin = Not at all Worrying too much about different things: 0 = Not at all Trouble relaxin = Not at all Being so restless that it is hard to sit still: 0 = Not at all Becoming easily annoyed or irritable: 0 = Not at all Feeling afraid as if something awful might happen: 0 = Not at all Total LU-7 score (0-4 normal; 5-9 mild; 10-14 moderate; 15-21 severe): 0 Source: Developed by Drs. Sidney Yun, Aimee Lay, Scar Antonio and colleagues, with an educational gaudencio from [employer]. LU-7 Assessment Billing LU-7 Assessment Tool: LU-7 Assessment 94588 Review of Systems Const Denies headache(s) Eyes Denies loss of vision ENT Denies vertigo, Denies dizziness, Denies headache(s) and Denies sore throat Card Denies chest pain, Denies leg edema and Denies lightheadedness Resp Denies cough, Denies hemoptysis and Denies wheezing GI Denies abdominal pain, Denies melena, Denies constipation, Denies diarrhea and Denies vomiting Denies dysuria, Denies urinary frequency and Denies urinary urgency Musc Denies arthralgias, Denies joint swelling, Denies numbness and Denies tingling Neuro Denies Abnormal speech present, Denies behavioral changes, Denies vertigo, Denies dizziness, Denies headache(s), Denies loss of vision, Denies memory loss, Denies numbness and Denies tingling Psych Denies anxiety, Denies behavioral changes, Denies depression, Denies memory loss and Denies panic attacks Bhavin/Lymph Denies easy bleeding and Denies easy bruising Aller/Immun Denies wheezing Physical exam (Primary Care) Vital Signs: Last Vital Signs Temp 97.3 F 09/29/24 15:48 Pulse 76 09/29/24 15:48 BP 152/102 H 09/29/24 15:48 Pulse Ox 97 09/29/24 15:48 Oxygen Delivery Method Room Air 09/29/24 15:48 BMI result Body Mass Index 34.7 Tobacco/Smoking Status: Tobacco use Status Tobacco use date assessed 09/29/24 09/29/24 15:51 Patient Tobacco Use Status Never used Tobacco 09/29/24 15:48 e-Cigarette/Vaping Use Never Used 09/29/24 15:48 PHQ-9: PHQ-9 Score PHQ-9: Total score 0 09/29/24 16:33 Depression Screening Interpretation: Negative Thrive Assessment: Date of Thrive Assessment Date Thrive assessed 09/29/24 09/29/24 15:51 Currently or been in a relationship where the following occur: No concerns reported Const General: healthy appearing, no acute distress, alert and awake Nutritional Appearance: well nourished Orientation/consciousness: oriented to person, oriented to place and oriented to time HENMT Ears: TM's normal bilaterally General nose exam: Normal nasal mucous membranes and turbinates present Eyes Conjunctivae: conjunctivae normal Sclerae: sclerae normal Pupils: Equal, round and reactive pupils present Neck Neck: Yes no lymphadenopathy and Yes no JVD Thyroid: Thyroid normal Carotids: no bruits Resp Effort & Inspection: normal respiratory effort and not tachypneic Auscultation: no crackles, no rales, no rhonchi and no wheezes Cardio Rate: regular rate Rhythm: regular rhythm Heart sounds: no murmurs and normal S1 and S2 GI Palpation (GI): Soft to palpation, nontender, no hepatomegaly and no splenomegaly Auscultation: normal bowel sounds Skin General skin exam: no rashes or lesions noted and dry skin Neuro General: oriented to person, oriented to place and oriented to time Cranial nerves: Yes Equal, round and reactive pupils present Speech: No Abnormal speech present Gait exam (Neuro): Normal gait present Motor exam (neuro): no tremor noted Extrem Right upper extremity: full ROM Left upper extremity: full ROM Right lower extremity: full ROM; no edema Left lower extremity: full ROM; no edema Psych Mental Status: mental status grossly normal Speech and movement: Normal speech and movement present Affect: normal affect Attitude: cooperative Thought process: Normal thought process present Coding Level of Care Code Est Pt Level 4 (63507) Diagnoses Primary hypertension I10 Hypertension type: primary hypertension Atrial fibrillation, unspecified type I48.91 Atrial fibrillation type: unspecified Class 1 obesity E66.811 Bipolar disorder, in partial remission, most recent episode mixed F31.77 Active/Remission status: in partial remission Most recent bipolar episode type: mixed Additional Codes LU-7 Assessment Billing - LU-7 Assessment Tool: LU-7 Assessment 79332 ([id number]) PHQ-9 - 85248 - PHQ-9 Billing: Yes ([id number]) Assessment & Plan Assessment & Plan (1) HTN (hypertension): Code(s): I10 - Essential (primary) hypertension Category: Medical Qualifiers: Hypertension type: primary hypertension Qualified Code(s): I10 - Essential (primary) hypertension Plan: Dietary salt reduction and stress management are encouraged as part of hypertension management. The patient should pursue regular home blood pressure monitoring. Will consider additional blood pressure medication if lifestyle and dietary modification fail. Blood pressure is to be below 140/90 (2) Afib: Code(s): I48.91 - Unspecified atrial fibrillation Category: Medical Qualifiers: Atrial fibrillation type: unspecified Qualified Code(s): I48.91 - Unspecified atrial fibrillation Plan: The patient's atrial fibrillation is managed with amiodarone and metoprolol. He continues anticoagulation with Eliquis without any overt signs of bleeding.. Initial dosing error was corrected, and referral to marketing researcher was made for ongoing management. (3) Class 1 obesity: Code(s): E66.811 - Obesity, class 1 Category: Medical Plan: Patient does understand his BMI is over 30 will work on being more physically active and adapting to better eating habits to reduce his weight. Since placed on olanzapine from a psychiatrist his mental health has been better though he has gained significant amount of weight.. He does report self-discontinuing his olanzapine (4) Bipolar disorder: Code(s): F31.9 - Bipolar disorder, unspecified Category: Medical Qualifiers: Active/Remission status: in partial remission Most recent bipolar episode type: mixed Qualified Code(s): F31.77 - Bipolar disorder, in partial remission, most recent episode mixed Plan: As above he is followed by a psychiatrist and a mental therapist quite regularly. He continues with his mirtazapine and hydroxyzine though has stopped olanzapine. He feels his mental health is fairly stable though has stressors in his life mainly his financial stresses. Orders: Orders Complete Blood Count no Diff 09/29/24 I48.91 - Unspecified atrial fibrillation Comprehensive [place]. Panel Fast 09/29/24 I48.91 - Unspecified atrial fibrillation Prostate Specific Antigen Scr 09/29/24 I48.91 - Unspecified atrial fibrillation, Z12.5 - Encounter for screening for malignant neoplasm of prostate Referrals Cardiology Referral I48.91 - Unspecified atrial fibrillation
== END 2024-09-29 16:45 | disposition home or self-care (01) ==
LOC: HO.HMCH 15:35
PROVIDERS: PCP Physician Assistant; Visit Provider Physician Assistant
DX: I48.91 Unspecified atrial fibrillation (principal); E66.811 Obesity, class 1; F31.77 Bipolar disorder, in partial remission, most recent episode mixed; Z68.34 Body mass index [BMI] 34.0-34.9, adult; I10 Essential (primary) hypertension

== ENCOUNTER → 2024-09-29 15:34 | Outpatient (BNVA) | payer OTHER, SELFPAY | PROVIDERS: PCP Physician Assistant; Visit Provider Physician Assistant | DX: I10 Essential (primary) hypertension (principal); I48.91 Unspecified atrial fibrillation; F31.77 Bipolar disorder, in partial remission, most recent episode mixed; E66.811 Obesity, class 1; Z68.34 Body mass index [BMI] 34.0-34.9, adult; Z71.3 Dietary counseling and surveillance | CPT/HCPCS: 96127; 99212 ==

== ENCOUNTER 2025-02-01 12:37 | Outpatient (AMB) | payer OTHER, SELFPAY ==
[2025-02-01 12:45] VITALS: BP 136/84; PULSE 64; O2SAT 98; BMI 32.3
--- NOTE | 2025-02-01 12:45 | MHC.PC.OV ---
Vital Signs 02/01/25 12:45 Height 5 ft 7 in Weight 206 lb BMI 32.3 BP 136/84 Blood Pressure Location Lt brachial Position Sitting Pulse 64 Pulse Source Pulse Oximeter Pulse Oximetry (%) 98 Oxygen Delivery Method Room Air Intake Visit Reasons: stye on eyelid Cell Inspector Required: No Accompanied by: Self / Same As Patient Allergies No Known Allergies Allergy (Verified 02/01/25 13:14) Medication List - Last Reconciled 02/01/25 by Anuj Riggs MD amiodarone 200 mg PO DAILY 90 days apixaban (Eliquis) 5 mg PO BID baclofen 5 mg PO BID 30 days blood pressure monitor As directed cyclobenzaprine 10 mg PO BEDTIME PRN 14 days hydroxyzine HCl 50 mg PO TID metoprolol tartrate 100 mg PO BID 90 days mirtazapine 45 mg PO BEDTIME olanzapine 10 mg PO DAILY Tobacco use date assessed: 02/01/25 Dental Screening Dental Screen Date: 02/01/25 Did you have a dental visit in the last 12 months?: Yes Did you have a dental problem in the last 6 months where you did not have access to dental care?: No Was dental information given to patient?: Patient has dentist VON peterson on eyelid HPI Details Patient comes in today complaining of a raised lesion on his right upper eyelid, which he states has been present for about 3 weeks now States that this is the second sty that he's had in the past few months and the first one was in exactly the same area Patient states that he has been applying warm compress over his right upper eyelid everyday regularly for the past couple of weeks with no apparent improvement - thinks that the cyst is actually getting bigger lately and he would like to get a referral to an eye doctor to have this removed He denies any increased pain over his eye or eyelid and denies any changes to his vision States that he had epidermal inclusion cysts over his anterior chest wall area that he's had removed a couple of times over the years but this has also recurred No other acute complaints or symptoms are noted [facility] Medical History Ruptured epidermal cyst History of cardioversion Sleep apnea Subcutaneous mass Arrhythmia Surgical History History of excision of epidermal inclusion cyst (~04/25/23) Status post excision of lipoma Family History Father CVD (cardiovascular disease) Mother Multiple sclerosis Social History Household Members: Spouse Housing: House Are you a primary transitional care manager to a significant other at home: No Do you presently have visiting nurse or other home services: No Alcohol intake: current Alcohol intake frequency: holidays/special occasions only Alcohol type: beer Patient Tobacco Use Status: Never used Tobacco e-Cigarette/Vaping Use: Never Used Second Hand Smoke Exposure: No Substance Use Type: Marijuana service: No Current occupational status: employed 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 1. Little interest or pleasure in doing things: not at all 2. Feeling down, depressed, or hopeless: not at all 3. Trouble falling or staying asleep, or sleeping too much: not at all 4. Feeling tired or having little energy: not at all 5. Poor appetite or overeating: not at all 6. Feeling bad about yourself - or that you are a failure or have let yourself or your family down: not at all 7. Trouble concentrating on things, such as reading the newspaper or watching television: not at all 8. Moving or speaking so slowly that other people could have noticed. Or the opposite - being so fidgety or restless that you have been moving around a lot more than usual: not at all 9. Thoughts that you would be better off or of hurting yourself in some way: not at all Total score: 0 Depression Screening Interpretation: Negative Depression Screening Done: Yes 04651 - PHQ-9 Billing: Yes Source: Developed by Drs. Sidney Ynu, Aimee Lay, Scar Antonio and colleagues, with an educational gaudencio from [employer]. Thrive Questionnaire Date Thrive assessed: 02/01/25 I am a: Patient What is your living situation today?: I choose not to answer this question Within the past 12 months, did the food you bought not last and you didn't have the money to get more?: Sometimes True Within the past 12 months, did you worry whether your food would run out before you got money to buy more?: I choose not to answer this question Do you have trouble paying for medicines?: I choose not to answer this question Do you have trouble getting transportation to medical appointments?: No Do you have trouble paying your heating and electricity bill?: I choose not to answer this question Do you have trouble taking care of your child, family member or friend?: I choose not to answer this question Do you have trouble with day-to-day activities such as bathing, preparing meals, shopping, managing finances, etc.?: No Are you currently unemployed and looking for a job?: Yes Are you interested in more education?: No Please select the resources that you would like help with: None Currently or been in a relationship where the following occur: No concerns reported THRIVE Score: 1 AUDIT C Alcohol Use Questionnaire (AUDIT-C) 1. How often do you have a drink containing alcohol?: Monthly or less 2. How many drinks containing alcohol do you have on a typical day when you are drinking?: 1 or 2 3. How often do you have six or more drinks on one occasion?: Monthly Total Score: 3 Score Reviewed/Action Taken: Yes LU-7 AMB Questionnaire LU-7 Date LU - 7 assessed: 02/01/25 Feeling nervous, anxious, or on edge: 2 = More than half the days Not being able to stop or control worryin = More than half the days Worrying too much about different things: 2 = More than half the days Trouble relaxin = More than half the days Being so restless that it is hard to sit still: 2 = More than half the days Becoming easily annoyed or irritable: 2 = More than half the days Feeling afraid as if something awful might happen: 0 = Not at all Total LU-7 score (0-4 normal; 5-9 mild; 10-14 moderate; 15-21 severe): 12 Source: Developed by Drs. Sidney Yun, Aimee Lay, Scar Antonio and colleagues, with an educational gaudencio from [employer]. Review of Systems Const Denies fatigue, Denies fever(s) and Denies headache(s) Eyes Details: (+) persistent cyst on the right upper eyelid Denies blurry vision ENT Denies dysphagia, Denies dizziness, Denies headache(s), Denies neck pain, Denies odynophagia and Denies sore throat Card Denies chest pain, Denies palpitations and Denies dyspnea Resp Denies chest congestion, Denies cough and Denies dyspnea GI Denies abdominal pain, Denies constipation, Denies dysphagia, Denies heartburn, Denies diarrhea, Denies nausea, Denies odynophagia and Denies vomiting Denies difficulty urinating, Denies dysuria and Denies nocturia Musc Denies back pain and Denies neck pain Skin/Breast Details: (+) recurrent raised lesion on the anterior chest wall Denies rash Neuro Denies dizziness and Denies headache(s) Endo Denies fatigue and Denies palpitations Physical exam (Primary Care) Vital Signs: Last Vital Signs Pulse 64 02/01/25 12:45 BP 136/84 02/01/25 12:45 Pulse Ox 98 02/01/25 12:45 Oxygen Delivery Method Room Air 02/01/25 12:45 BMI result Body Mass Index 32.3 Tobacco/Smoking Status: Tobacco use Status Tobacco use date assessed 02/01/25 02/01/25 12:49 Patient Tobacco Use Status Never used Tobacco 02/01/25 12:49 e-Cigarette/Vaping Use Never Used 02/01/25 12:49 PHQ-9: PHQ-9 Score PHQ-9: Total score 0 02/01/25 12:49 Depression Screening Interpretation: Negative Thrive Assessment: Date of Thrive Assessment Date Thrive assessed 02/01/25 02/01/25 12:49 Currently or been in a relationship where the following occur: No concerns reported Const General: no acute distress and alert Eyes Other: (+) raised cystic lesion on the right upper eyelid Neck Neck: Yes supple and No lymphadenopathy Thyroid: Thyroid normal Resp Auscultation: clear to auscultation bilaterally, no rales and no wheezes Cardio Rate: regular rate Rhythm: regular rhythm Heart sounds: no murmurs GI Palpation (GI): Soft to palpation and nontender Auscultation: normal bowel sounds General: Yes no CVA tenderness Back/Spine/Pelvis Back: no CVA tenderness Skin Rashes: no rashes Extrem General: Yes no clubbing, cyanosis or edema Coding Level of Care Code Est Pt Level 3 (24771) Diagnoses Hordeolum externum of right upper eyelid H00.011 Additional Codes PHQ-9 - 19662 - PHQ-9 Billing: Yes ([id number]) Assessment & Plan Assessment & Plan (1) Hordeolum externum of right upper eyelid: Code(s): H00.011 - Hordeolum externum right upper eyelid Category: Medical Plan: Patient states that he has tried conservative measures over the past couple of weeks with no improvement at all Per request, will refer him to ophthalmology for consideration for surgical I & D Plan To schedule annual PE with PCP when appropriate Orders: Referrals Ophthalmology Referral H00.011 - Hordeolum externum right upper eyelid
== END 2025-02-01 13:23 | disposition home or self-care (01) ==
LOC: HO.HMCH 12:38
PROVIDERS: PCP Physician Assistant; Visit Provider Internal Medicine
DX: H00.011 Hordeolum externum right upper eyelid (principal)

== ENCOUNTER → 2025-02-01 12:37 | Outpatient (BNVA) | payer OTHER, SELFPAY | PROVIDERS: PCP Physician Assistant; Visit Provider Internal Medicine | DX: H00.011 Hordeolum externum right upper eyelid (principal) | CPT/HCPCS: 96127; 99212 ==

== ENCOUNTER → 2025-05-03 15:44 | Outpatient (BNVA) | payer OTHER, SELFPAY | PROVIDERS: PCP Physician Assistant; Visit Provider Nurse Practitioner Family | DX: I10 Essential (primary) hypertension (principal); I48.91 Unspecified atrial fibrillation; I42.9 Cardiomyopathy, unspecified; Q21.12 Patent foramen ovale | CPT/HCPCS: 93005; 99212 ==

== ENCOUNTER 2025-06-07 13:07 | Outpatient (REF) | payer OTHER, SELFPAY ==
[2025-06-07 16:10] LABS: MANUAL DIFF FLAG NO
[2025-06-07 16:28] LABS: Hematocrit 43.6 % (42.0-52.0); Hemoglobin 14.4 g/dl (14.0-18.0); Imm Gran Abs Auto 0.03 X10*3/uL (0.00-0.03); Imm Gran Pct Auto 0.3 % (0.0-0.4); Lymphocytes Absolute Auto 3.3 X10*3/uL (1.2-4.9); Mean Corpuscular HGB Conc 33.0 g/dl (31.0-36.0); Mean Corpuscular Hemoglobin 28.2 pg (27.0-33.0); Mean Corpuscular Volume 85.5 fL (80.0-98.0); NRBC Abs Auto 0.000 X10*3/uL (0.0-0.012); NRBC Pct Auto 0.0 /100WBC (0.0-0.2); Platelet Count 249 X10*3/uL (160-400); Red Blood Count 5.10 X10*6/uL (4.60-5.80); White Blood Count 9.5 X10*3/uL (4.8-10.8)
[2025-06-07 16:56] LABS: Alanine Aminotransferase 20 U/L (0-40); Albumin Level 4.2 g/dL (3.5-5.0); Alkaline Phosphatase 80 U/L (39-117); Anion Gap 10 (12-20); Aspartate Amino Transferase 21 U/L (5-37); Blood Urea Nitrogen 15 mg/dL (9-16); Calcium 8.8 mg/dL (8.4-10.2); Carbon Dioxide 26 mmol/L (22-29); Chloride 108 mmol/L (96-108); Estimated Glomerular Filt Rate > 60; Potassium 4.4 mmol/L (3.3-5.1); Sodium 140 mmol/L (135-145); Total Protein 6.5 g/dL (6.5-8.0)
== END 2025-06-07 13:08 | disposition home or self-care (01) ==
LOC: HO.HMGCLDS 13:07
PROVIDERS: PCP Physician Assistant; Visit Provider Nurse Practitioner Family
DX: I48.91 Unspecified atrial fibrillation (principal); I42.9 Cardiomyopathy, unspecified
CPT/HCPCS: 36415; 80053; 84443; 85025

== ENCOUNTER → 2025-06-09 14:39 | Outpatient (REF) | payer OTHER, SELFPAY ==
--- NOTE | 2025-06-09 14:41 | CA_ITS ---
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 The calculated ejection fraction is 62% by biplane method. - No obvious valvular pathology seen on this study. Findings Left Ventricle Normal left ventricular cavity size. The left ventricular systolic function is normal. The calculated ejection fraction is 62% by biplane method. There is no evidence of regional wall motion abnormalities. Diastolic function is normal for age. There is mild septal asymmetric hypertrophy. Right Ventricle Mildly increased right ventricular cavity size. There is normal right ventricular systolic function. Atria Both atria are normal in size. Aortic Valve There is a normal trileaflet aortic valve. There is no aortic valve stenosis. There is no aortic valve regurgitation. Mitral Valve The mitral valve appears normal. There is no mitral valve regurgitation. There is no mitral valve stenosis. Pulmonic Valve The pulmonic valve is likely normal. Tricuspid Valve Normal tricuspid valve structure. There is mild tricuspid valve regurgitation. There is no evidence of pulmonary hypertension. Great Vessels The asc aorta is normal in size. Venous The inferior vena cava is normal in size and collapses greater than 50% with inspiration. Pericardium/Pleural There is no evidence of pericardial effusion. Prior Study Comparison Changes noted compared to prior study dated: 05/07/2024. Improved LVEF. Recommendations, Care & Conclusions No obvious valvular pathology seen on this study. Measurements 2D Linear Measurements IVSd: 1.20 0.6-0.9/0.6-1.0 cm LVIDd: 5.03 3.9-5.3/4.2-5.9 cm LVIDd Index: 2.44 2.4-3.2/2.2-3.1 cm/m2 LVIDs: 2.99 2.0-3.6 cm LVPWd: 0.82 0.7-1.1 cm LA Diam: 3.50 2.7-3.8/3.0-4.0 cm LAIDs Index: 1.70 1.5-2.3 cm/m2 LV Mass: 231.75 67-162/88-224 g LV Mass Index: 112.50 43-95/49-115 g/m2 LVOT Diam: 2.30 3.0+(-)1.3 cm 2D Systolic Function EF 4C: 69.90 >55% EF 2C: 52.70 >55% EF BiP: 61.90 >55% Mitral Valve MV Pk E: 0.57 MV PK A: 0.45 MV Decel Time: 241.00 E/A: 1.30 E'Lateral: 9.36 E'Medial: 6.42 E/E' Med: 8.90 E/E' Lat: 6.10 PHT: 71.00 MVA PHT: 3.10 Decel Pierce: 2.38 Aortic Valve AoV Pk Ethan: 1.10 AoV Pk Grad: 5.00 FRANKY: 3.86 LVOT LVOT Pk Ethan: 1.01 LVOT Mn Ethan: 0.65 LVOT VTI: 0.21 LVOT Pk Grad: 4.00 LVOT Mn Grad: 2.00 LVOT Diam: 2.30 LVOT Area: 4.15 Diastolic Function MV Pk E: 0.57 MV Pk A: 0.45 E/A: 1.30 E'Medial: 6.42 E/E' Med: 8.90 E' Laterial: 9.36 E/E' Lat: 6.10 Right Ventricle TAPSE (mm): 20.90 TVS' Ethan: 10.90 Tricuspid Valve TR Pk Ethan: 2.28 TR Pk Grad: 21.00 RA Press: 3.00 RVSP: 24.00 Great Vessels Aorta Sinus of Valsalva: 3.70 2.0-3.5 cm Ao Asc: 3.60 2.1-3.4 cm Ao Arch: 2.90 Pulmonary Veins Pulm Vein S/D 1.10 Pulmonary Valve PV Pk Ethan: 1.22 Peak PV Grad: 6.00 Updated in Other Vendor System with Status of Final Abdi Barone MD electronically signed on 06/11/2025 1:22:38 PM with status of Final
== END ==
LOC: HO.CARD 14:39
PROVIDERS: PCP Physician Assistant; Visit Provider Nurse Practitioner Family
DX: I42.9 Cardiomyopathy, unspecified (principal); I48.91 Unspecified atrial fibrillation
CPT/HCPCS: 93306

== ENCOUNTER → 2025-06-09 14:41 | Outpatient (BNV) | payer OTHER, SELFPAY | PROVIDERS: PCP Physician Assistant; Visit Provider Internal Medicine | DX: I42.2 Other hypertrophic cardiomyopathy (principal) | CPT/HCPCS: 93306 ==